=== PATIENT | female | born 2000 | race American Indian/Alaskan Native ===

== ENCOUNTER 2020-09-23 03:01 | Inpatient (IN) | payer BC ==
[2020-09-23] MEDS ORDERED: SODIUM CHLORIDE 0.9% 1000 ML 1,000 ML IV ONE (03:06)
[2020-09-23] MEDS ORDERED: ALBUTEROL 2.5 MG/3 ML NEBU IH ONE ×2 (03:06→04:29)
[2020-09-23] MEDS ORDERED: MAGNESIUM SULFATE 2 GM/50 ML BAG IV ONE (03:06)
[2020-09-23] MEDS ORDERED: methylPREDNISolone Sod Succinate 125 MG/2 ML INJ IV ONE (03:06)
[2020-09-23] MEDS ORDERED: IPRATROPIUM 0.02% NEBU 2.5 ML IH ONE ×2 (03:06→04:29)
--- NOTE | 2020-09-23 03:11 | Emergency Department Report ---
ED Asthma HPI - General Stated Complaint: ASTHMA Time Seen by Provider: 09/23/20 03:05 Source: patient, EMS Mode of arrival: Stretcher Limitations: Other (severe work of breathing) - History of Present Illness Initial Comments: CC: asthma attack HPI: This is a 20 yo female with hx of severe persistent asthma requiring several hospitalizations who presents with asthma attack. She has severe shortness of breath with wheezing. Oxygen saturation 91% on room air according to EMS. Patient denies hx of intubation. Recently evaluated at [facility]. Received 5 mg of Albuterol via EMS in addition to her own albuterol MDI. MD Complaint: "asthma attack", shortness of breath, wheezing -: Gradual, days(s) (1 day) Asthma History: childhood onset, history of prior ED visit Severity: severe Context: none known Associated Symptoms: none Treatments Prior to Arrival: inhaled bronchodilator - Related Data Allergies Allergy/AdvReac Type Severity Reaction Status Date / Time iodine Allergy Unknown Verified 09/23/20 03:24 ED Review of Systems ROS: Stated complaint: ASTHMA Other details as noted in HPI Comment: Unobtainable due to pts medical conditions (limited due to severe work of breathing) ED Past Medical Hx - Past Medical History Previous Medical History?: Yes Hx Asthma: Yes ED Physical Exam - General General appearance: alert, in distress, other (tripod positioning, unable to speak, severe work of breathing) - Head Head exam: Present: atraumatic, normocephalic - Eye Eye exam: Present: normal appearance - ENT ENT exam: Present: mucous membranes moist - Neck Neck exam: Present: normal inspection - Respiratory Respiratory exam: Present: respiratory distress, wheezes, accessory muscle use, prolonged expiratory. Absent: rales, rhonchi - Cardiovascular Cardiovascular Exam: Present: normal rhythm, tachycardia, normal heart sounds. Absent: systolic murmur, diastolic murmur, rubs, gallop - GI/Abdominal GI/Abdominal exam: Present: soft, normal bowel sounds. Absent: distended, tenderness, guarding, rebound - Extremities Exam Extremities exam: Present: normal inspection - Back Exam Back exam: Present: normal inspection - Neurological Exam Neurological exam: Present: alert, oriented X3 - Psychiatric Psychiatric exam: Present: normal affect, anxious - Skin Skin exam: Present: warm, dry, intact, normal color. Absent: rash ED Course Vital Signs 09/23/20 09/23/20 09/23/20 03:02 03:26 04:34 Temperature 97.4 F L Pulse Rate 136 H Pulse Rate [ 134 H 145 H Bilateral Throughout] Respiratory 26 H Rate Respiratory 27 H 24 Rate [Bilateral Throughout] Blood Pressure 127/77 [Left] O2 Sat by Pulse 96 Oximetry - Reevaluation(s) Reevaluation #1: 09/23/20 04:40 Patient has expiratory wheezes, able to speak sentences. Still has obvious work of breathing. ED Medical Decision Making - Lab Data Result diagrams: 09/23/20 03:18 09/23/20 03:18 - Radiology Data Radiology results: report reviewed Chest radiograph no acute findings - Medical Decision Making Status asthmaticus, acute respiratory failure hypoxia, improving with continuous nebulizer therapy but with persistent work of breathing. Patient is now able to speak. However she still has accessory muscle use and prolonged respiratory phase. Work-up notable for leukocytosis attributed to the marginalization, random blood glucose elevation attributed to steroid use. Mild volume contraction. Patient did receive IV fluid therapy in emergency department. Patient admitted to [facility] in fair condition. Critical Care Time: Yes Critical care time in (mins) excluding proc time.: 40 Critical care attestation.: If time is entered above; I have spent that time in minutes in the direct care of this critically ill patient, excluding procedure time. 40 minutes of critical care time excluding procedures were used in the care of the patient. I came immediately to the bedside upon patient's arrival. I obtained history from EMS at the bedside. I discussed treatment plan with the nursing team members and respiratory therapist. I was concerned for imminent respiratory failure. I kept the family members informed. Patient required multiple interventions and reassessments. ED Disposition Clinical Impression: Status asthmaticus, Acute respiratory failure with hypoxia Disposition: OP ADMIT IP TO THIS HOSP Is pt being admited?: Yes Condition: Fair
--- NOTE | 2020-09-23 03:43 | XRay Report ---
CHEST 1 VIEW 09/23/2020 2:37 AM INDICATION / CLINICAL INFORMATION: Asthma. COMPARISON: None available. FINDINGS: SUPPORT DEVICES: None. HEART / MEDIASTINUM: No significant abnormality. LUNGS / PLEURA: Clear lungs. No significant pleural effusion. No pneumothorax. ADDITIONAL FINDINGS: No significant additional findings. IMPRESSION: 1. No acute abnormality of the chest. Signer Name: Tyler Hu MD Signed: 09/23/2020 3:39 AM Workstation Name: [id number]
[2020-09-23 04:09] LABS: Hematocrit 38.2 % (30.3-42.9); Hemoglobin 12.9 gm/dl (10.1-14.3); Mean Corpuscular HGB Conc 34 % (30-34); Mean Corpuscular Volume 96 fl (79-97); Platelet Count 269 K/mm3 (140-440); Red Blood Count 3.99 M/mm3 (3.65-5.03); Red Cell Distribution Width 13.2 % (13.2-15.2)
[2020-09-23 04:22] LABS: BUN/Creatinine Ratio 7; Blood Urea Nitrogen 5 mg/dL (7-17); Calcium 8.7 mg/dL (8.4-10.2); Hemolysis Index 2
[2020-09-23] MEDS ORDERED: ONDANSETRON 4 MG/2 ML INJ IV PRN (04:41)
[2020-09-23] MEDS ORDERED: DEXTROSE 50% IN WATER (25GM) 50 ML SYRINGE IV PRN (04:41)
[2020-09-23] MEDS ORDERED: ACETAMINOPHEN 325 MG TAB PO PRN (04:41)
[2020-09-23] MEDS ORDERED: ALBUTEROL 2.5 MG/3 ML NEBU IH PRN ×2 (04:41→11:41)
--- NOTE | 2020-09-23 05:15 | History and Physical Report ---
History of Present Illness Date of examination: 09/23/20 Date of admission: 09/23/20 04:41 Chief complaint: JAVI History of present illness: 20-year-old -Finnish female with history of severe persistent asthma who presents to [facility] ED with complaints of asthma attack. Patient complains of productive cough with yellow sputum production, chest tightness, shortness of breath and wheezing x1 day. Patient went to outpatient facility ([facility]) for treatment, was given a dose of nebulizer treatments and and was discharged home. After returning home her symptoms did not improve, but rather worsened. EMS was called, and she was transported to our facility for further treatment and evaluation. Of note patient has history severe persistent asthma requiring several hospitalizations. Denies fever, chills, N/V/D, hemoptysis, abdominal pain, loss of smell, loss of taste, myalgias, chest pain, palpitation, or recent sick contacts Past History Past Medical History: other (asthma) Past Surgical History: Other (Cystectomy) Social history: single, full code. denies: smoking, alcohol abuse, prescription drug abuse, IV drug use Family history: diabetes, hypertension Medications and Allergies Allergies Allergy/AdvReac Type Severity Reaction Status Date / Time iodine Allergy Unknown Verified 09/23/20 03:24 Active Meds: Active Medications Acetaminophen (Acetaminophen 325 Mg Tab) 650 mg PO Q4H PRN PRN Reason: Pain MILD(1-3)/Fever >100.5/LOWE Albuterol (Albuterol 2.5 Mg/3 Ml Nebu) 2.5 mg IH Q3HRT PRN PRN Reason: Shortness Of Breath Albuterol/Ipratropium (Ipratropium/Albuterol Sulfate 3 Ml Ampul.Neb) 1 ampul IH Q6HRT KRISTINA Budesonide (Budesonide 0.5 Mg/2 Ml Nebu) 0.5 mg IH Q12HRT KRISTINA Dextrose (Dextrose 50% In Water (25gm) 50 Ml Syringe) 0 ml IV Q30MIN PRN; Protocol PRN Reason: Hypoglycemia Docusate Sodium (Docusate Sodium 100 Mg Cap) 100 mg PO BID KRISTINA Guaifenesin (Guaifenesin Er 600 Mg Tab) 600 mg PO BID KRISTINA Heparin Sodium (Porcine) (Heparin 5,000 Unit/1 Ml Vial) 5,000 unit SUB-Q Q12HR KRISTINA Levofloxacin/Dextrose (Levaquin 500mg/100ml) 500 mg in 100 mls @ 100 mls/hr IV Q24H KRISTINA; Protocol Stop: 09/30/20 04:59 Insulin Human Regular (Insulin Regular, Human 100 Units/1 Ml) 0 units SUB-Q ACHS KRISTINA; Protocol Methylprednisolone Sodium Succinate (Methylprednisolone Sod Succinate 40 Mg/1 Ml Inj) 80 mg IV Q8HR KRISTINA Ondansetron HCl (Ondansetron 4 Mg/2 Ml Inj) 4 mg IV Q8H PRN PRN Reason: Nausea And Vomiting Sodium Chloride (Sodium Chloride 0.9% 10 Ml Flush Syringe) 10 ml IV BID KRISTINA Sodium Chloride (Sodium Chloride 0.9% 10 Ml Flush Syringe) 10 ml IV PRN PRN PRN Reason: LINE FLUSH Review of Systems All systems: negative Exam - Physical Exam Narrative exam: Physical exam General appearance: Present: Moderate distress, alert and oriented x3, young adult -Finnish female, - EENT Eyes: Present: PERRL, EOM intact ENT: hearing intact, normal dentition - Neck Neck: Present: supple, normal ROM - Respiratory Respiratory effort: Labored with use of accessory muscles Respiratory: Coarse wheezing - Cardiovascular Heart rate: 130 (bpm) Rhythm: Sinus tachycardia Heart Sounds: Present: S1 & S2. Absent: rub, click - Extremities Extremities: no ischemia, pulses intact, - Peripheral Assessment Peripheral Pulses: within normal limits - Abdominal General gastrointestinal: soft, non-tender, normal bowel sounds - Integumentary Integumentary: Present: warm, dry - Musculoskeletal Musculoskeletal: Able to move all extremities -Neurological Neurological: CN II-XII intact - Psychiatric Psychiatric: cooperative - Constitutional Vitals: Temp Pulse Resp BP Pulse Ox 97.4 F L 145 H 24 139/77 100 09/23/20 03:02 09/23/20 04:34 09/23/20 04:34 09/23/20 03:30 09/23/20 03:30 Results - Labs CBC & Chem 7: 09/23/20 03:18 09/23/20 03:18 Labs: Laboratory Last Values WBC 14.4 K/mm3 (4.5-11.0) H 09/23/20 03:18 RBC 3.99 M/mm3 (3.65-5.03) 09/23/20 03:18 Hgb 12.9 gm/dl (10.1-14.3) 09/23/20 03:18 Hct 38.2 % (30.3-42.9) 09/23/20 03:18 MCV 96 fl (79-97) 09/23/20 03:18 MCH 32 pg (28-32) 09/23/20 03:18 MCHC 34 % (30-34) 09/23/20 03:18 RDW 13.2 % (13.2-15.2) 09/23/20 03:18 Plt Count 269 K/mm3 (140-440) 09/23/20 03:18 Seg Neutrophils % Product Support Sales Representative 09/23/20 03:18 Sodium 136 mmol/L (137-145) L 09/23/20 03:18 Potassium 3.4 mmol/L (3.6-5.0) L 09/23/20 03:18 Chloride 101.2 mmol/L (98-107) 09/23/20 03:18 Carbon Dioxide 18 mmol/L (22-30) L 09/23/20 03:18 Anion Gap 20 mmol/L 09/23/20 03:18 BUN 5 mg/dL (7-17) L 09/23/20 03:18 Creatinine 0.7 mg/dL (0.6-1.2) 09/23/20 03:18 Estimated GFR > 60 ml/min 09/23/20 03:18 BUN/Creatinine Ratio 7 % 09/23/20 03:18 Glucose 239 mg/dL (65-100) H 09/23/20 03:18 Calcium 8.7 mg/dL (8.4-10.2) 09/23/20 03:18 - Imaging and Cardiology Imaging and Cardiology: CXR: FINDINGS: SUPPORT DEVICES: None. HEART / MEDIASTINUM: No significant abnormality. LUNGS / PLEURA: Clear lungs. No significant pleural effusion. No pneumothorax. ADDITIONAL FINDINGS: No significant additional findings. IMPRESSION: 1. No acute abnormality of the chest. Assessment and Plan Assessment and plan: Acute Exacerbation Asthma with bronchitis -CXR negative -Endorses cough with yellow sputum production -Leukocytosis 14.4 -Continue supportive care -Scheduled Duo Nebs and Pulmicort, albuterol when necessary -IV systemic steroids -Mucinex -Start IV abx -Pulmonary consulted Acute respiratory failure -Monitor saturations -O2 sat 91% on room air -Supplemental oxygen as needed -Wean as tolerated -Supportive care Hyperglycemia -Likely secondary to IV steroids -Monitor BG -A1c pending -SSI as needed Hypokalemia -Mild at 3.4 -Ordered potassium replacement -Continue to monitor replete prn Advance Directives: No VTE prophylaxis?: Chemical, Mechanical Plan of care discussed with patient/family: Yes
[2020-09-23] MEDS ORDERED: POTASSIUM CHLORIDE ER 10 MEQ TAB PO ONE (05:49)
[2020-09-23] MEDS ORDERED: methylPREDNISolone Sod Succinate 40 MG/1 ML INJ IV SCH (06:00)
[2020-09-23 06:41] LABS: Band Neutrophils # (Manual) 0.4 K/mm3; Total Cells Counted 100
[2020-09-23 06:42] LABS: Large Platelets Few; Platelet Estimate Consistent w Auto; RBC Morphology Normal
[2020-09-23] MEDS ORDERED: BUDESONIDE 0.5 MG/2 ML NEBU IH SCH (08:00)
[2020-09-23] MEDS: IPRATROPIUM/ALBUTEROL SULFATE 3 ML AMPUL.NEB IH SCH ×3 (08:17→20:08)
[2020-09-23] MEDS: DOCUSATE SODIUM 100 MG CAP PO SCH ×2 (09:16→21:36)
[2020-09-23] MEDS: INSULIN REGULAR, HUMAN 100 UNITS/1 ML SUB-Q SCH ×4 (09:16→21:37)
[2020-09-23] MEDS: guaiFENesin ER 600 MG TAB PO SCH ×2 (09:16→21:36)
[2020-09-23] MEDS ORDERED: HEPARIN 5,000 UNIT/1 ML VIAL SUB-Q SCH (10:00)
--- NOTE | 2020-09-23 11:10 | Event Note ---
Date: 09/23/20 20-year-old female with a medical history of asthma, COVID-19, pulmonary embolism admitted with chief complaint of shortness of breath. Patient recently moved from [place] to [place] for [facility]. She uses albuterol and Advair at home. Here in the ER, she was noted to have severe asthma exacerbation however was placed on BiPAP and IV steroids. Saw and examined patient at bedside this morning. She looks comfortable but still has diffuse expiratory wheezes. Increased Solu-Medrol to 80 every 6 hours. She is on bronchodilators. Pulmon ology consult requested. Resumed home dose Eliquis. Plan to continue monitor respiratory status. Possibly switch to nasal cannula today. Respiratory therapist to reevaluate. Will document a full progress note tomorrow
[2020-09-23] MEDS ORDERED: ALBUTEROL 2.5 MG/3 ML NEBU IH SCH (11:15)
[2020-09-23] MEDS: methylPREDNISolone Sod Succinate 40 MG/1 ML INJ IV SCH ×2 (12:06→17:06)
[2020-09-23] MEDS: APIXABAN 5 MG TAB PO SCH ×2 (12:09→21:36)
[2020-09-23 14:38] LABS: Hematocrit 34.3 % (30.3-42.9); Mean Corpuscular HGB Conc 35 % (30-34); Mean Corpuscular Volume 93 fl (79-97); Platelet Count 263 K/mm3 (140-440); Red Blood Count 3.68 M/mm3 (3.65-5.03); Red Cell Distribution Width 13.1 % (13.2-15.2)
[2020-09-23 14:55] LABS: INR 1.07 (0.87-1.13)
[2020-09-23] MEDS: BUDESONIDE 0.5 MG/2 ML NEBU IH SCH (20:08)
[2020-09-23] MEDS: ARFORMOTEROL 15 MCG/2 ML NEBU IH SCH (20:08)
[2020-09-24] MEDS: IPRATROPIUM/ALBUTEROL SULFATE 3 ML AMPUL.NEB IH SCH ×5 (02:13→20:19)
[2020-09-24] MEDS: methylPREDNISolone Sod Succinate 40 MG/1 ML INJ IV SCH ×4 (05:05→21:25)
[2020-09-24 06:27] LABS: Blood Urea Nitrogen 11 mg/dL (7-17); Calcium 9.1 mg/dL (8.4-10.2); Hemolysis Index 1
[2020-09-24 06:32] LABS: Basophils % (Auto) 0.1 % (0.0-1.8); Hematocrit 35.2 % (30.3-42.9); Hemoglobin 12.2 gm/dl (10.1-14.3); Lymphocytes # (Auto) 0.7 K/mm3 (1.2-5.4); Mean Corpuscular HGB Conc 35 % (30-34); Mean Corpuscular Volume 94 fl (79-97); Monocytes % (Auto) 11.3 % (0.0-7.3); Platelet Count 278 K/mm3 (140-440); Red Blood Count 3.74 M/mm3 (3.65-5.03); Red Cell Distribution Width 13.2 % (13.2-15.2)
[2020-09-24 06:45] LABS: BUN/Creatinine Ratio 18
[2020-09-24] MEDS: INSULIN REGULAR, HUMAN 100 UNITS/1 ML SUB-Q SCH ×4 (07:09→21:25)
[2020-09-24] MEDS: ARFORMOTEROL 15 MCG/2 ML NEBU IH SCH ×2 (08:24→20:17)
[2020-09-24] MEDS: BUDESONIDE 0.5 MG/2 ML NEBU IH SCH ×2 (08:25→20:19)
[2020-09-24] MEDS: guaiFENesin ER 600 MG TAB PO SCH ×2 (09:02→21:24)
[2020-09-24] MEDS: DOCUSATE SODIUM 100 MG CAP PO SCH ×2 (09:02→21:24)
[2020-09-24] MEDS: APIXABAN 5 MG TAB PO SCH ×2 (09:02→21:24)
--- NOTE | 2020-09-24 10:22 | Progress Note ---
Assessment and Plan Assessment and plan: #Acute hypoxic respiratory failure Secondary to severe asthma exacerbation Continue oxygen supplementation as needed #Acute asthma exacerbation Solu-Medrol 80 every 6 Bronchodilators Guaifenesin Pulmonology evaluation Antibiotics #History of pulmonary embolism Continue Eliquis DVT prophylaxis-patient is on Eliquis Full code History Interval history: 09/24. Patient is breathing better. Remains on high-dose steroids. Transitioned from BiPAP to oxygen today. Remains on bronchodilators. Pulmonology to see Hospitalist Physical - Physical exam Narrative exam: VITAL SIGNS: Reviewed. GENERAL: Awake HEAD: No signs of head trauma. EYES: Pupils are equal. Extraocular motions intact. MOUTH: Oropharynx is normal. NECK: No adenopathy, no JVD. CHEST: Diffuse expiratory wheezes/rhonchi CARDIAC: normal S1 and S2, without murmurs, gallops, or rubs. ABDOMEN: Soft, non tender and non distended. No rebound or guarding, and no masses palpated. Bowel Sounds normal. MUSCULOSKELETAL: No edema NEUROLOGIC EXAM: Alert and oriented x3. No focal neurologic deficits SKIN: No obvious lesions - Constitutional Vitals: Temp Pulse Resp BP Pulse Ox 98.0 F 90 22 109/65 97 09/24/20 08:34 09/24/20 08:34 09/24/20 08:34 09/24/20 08:34 09/24/20 08:39 Results - Labs CBC & Chem 7: 09/24/20 04:54 09/24/20 04:54 Labs: Laboratory Last Values WBC 17.7 K/mm3 (4.5-11.0) H 09/24/20 04:54 RBC 3.74 M/mm3 (3.65-5.03) 09/24/20 04:54 Hgb 12.2 gm/dl (10.1-14.3) 09/24/20 04:54 Hct 35.2 % (30.3-42.9) 09/24/20 04:54 MCV 94 fl (79-97) 09/24/20 04:54 MCH 33 pg (28-32) H 09/24/20 04:54 MCHC 35 % (30-34) H 09/24/20 04:54 RDW 13.2 % (13.2-15.2) 09/24/20 04:54 Plt Count 278 K/mm3 (140-440) 09/24/20 04:54 Lymph % (Auto) 4.0 % (13.4-35.0) L 09/24/20 04:54 Deuel % (Auto) 11.3 % (0.0-7.3) H 09/24/20 04:54 Eos % (Auto) 0.0 % (0.0-4.3) 09/24/20 04:54 Baso % (Auto) 0.1 % (0.0-1.8) 09/24/20 04:54 Lymph # (Auto) 0.7 K/mm3 (1.2-5.4) L 09/24/20 04:54 Deuel # (Auto) 2.0 K/mm3 (0.0-0.8) H 09/24/20 04:54 Eos # (Auto) 0.0 K/mm3 (0.0-0.4) 09/24/20 04:54 Baso # (Auto) 0.0 K/mm3 (0.0-0.1) 09/24/20 04:54 Add Manual Diff Complete 09/23/20 03:18 Total Counted 100 09/23/20 03:18 Seg Neutrophils % 84.6 % (40.0-70.0) H 09/24/20 04:54 Seg Neuts % (Manual) 93.0 % (40.0-70.0) H 09/23/20 03:18 Band Neutrophils % 3.0 % 09/23/20 03:18 Lymphocytes % (Manual) 2.0 % (13.4-35.0) L 09/23/20 03:18 Monocytes % (Manual) 2.0 % (0.0-7.3) 09/23/20 03:18 Nucleated RBC % Not Reportable 09/23/20 03:18 Seg Neutrophils # 14.9 K/mm3 (1.8-7.7) H 09/24/20 04:54 Seg Neutrophils # Man 13.4 K/mm3 (1.8-7.7) H 09/23/20 03:18 Band Neutrophils # 0.4 K/mm3 09/23/20 03:18 Lymphocytes # (Manual) 0.3 K/mm3 (1.2-5.4) L 09/23/20 03:18 Abs React Lymphs (Man) 0.0 K/mm3 09/23/20 03:18 Monocytes # (Manual) 0.3 K/mm3 (0.0-0.8) 09/23/20 03:18 Eosinophils # (Manual) 0.0 K/mm3 (0.0-0.4) 09/23/20 03:18 Basophils # (Manual) 0.0 K/mm3 (0.0-0.1) 09/23/20 03:18 Metamyelocytes # 0.0 K/mm3 09/23/20 03:18 Myelocytes # 0.0 K/mm3 09/23/20 03:18 Promyelocytes # 0.0 K/mm3 09/23/20 03:18 Blast Cells # 0.0 K/mm3 09/23/20 03:18 WBC Morphology Not Reportable 09/23/20 03:18 Hypersegmented Neuts Not Reportable 09/23/20 03:18 Hyposegmented Neuts Not Reportable 09/23/20 03:18 Hypogranular Neuts Not Reportable 09/23/20 03:18 Smudge Cells Not Reportable 09/23/20 03:18 Toxic Granulation Not Reportable 09/23/20 03:18 Toxic Vacuolation Not Reportable 09/23/20 03:18 Dohle Bodies Not Reportable 09/23/20 03:18 Pelger-Huet Anomaly Not Reportable 09/23/20 03:18 Sai Rods Not Reportable 09/23/20 03:18 Platelet Estimate Consistent w auto 09/23/20 03:18 Clumped Platelets Not Reportable 09/23/20 03:18 Plt Clumps, EDTA Not Reportable 09/23/20 03:18 Large Platelets Few 09/23/20 03:18 Giant Platelets Not Reportable 09/23/20 03:18 Platelet Satelliting Not Reportable 09/23/20 03:18 Plt Morphology Comment Not Reportable 09/23/20 03:18 RBC Morphology Normal 09/23/20 03:18 Dimorphic RBCs Not Reportable 09/23/20 03:18 Polychromasia Not Reportable 09/23/20 03:18 Hypochromasia Not Reportable 09/23/20 03:18 Poikilocytosis Not Reportable 09/23/20 03:18 Anisocytosis Not Reportable 09/23/20 03:18 Microcytosis Not Reportable 09/23/20 03:18 Macrocytosis Not Reportable 09/23/20 03:18 Spherocytes Not Reportable 09/23/20 03:18 Pappenheimer Bodies Not Reportable 09/23/20 03:18 Sickle Cells Not Reportable 09/23/20 03:18 Target Cells Not Reportable 09/23/20 03:18 Tear Drop Cells Not Reportable 09/23/20 03:18 Ovalocytes Not Reportable 09/23/20 03:18 Helmet Cells Not Reportable 09/23/20 03:18 Kauffman-Florence-Graham Bodies Not Reportable 09/23/20 03:18 [place] Rings Not Reportable 09/23/20 03:18 Vanessa Cells Not Reportable 09/23/20 03:18 Bite Cells Not Reportable 09/23/20 03:18 Crenated Cell Not Reportable 09/23/20 03:18 Elliptocytes Not Reportable 09/23/20 03:18 Acanthocytes (Spur) Not Reportable 09/23/20 03:18 Rouleaux Not Reportable 09/23/20 03:18 Hemoglobin C Crystals Not Reportable 09/23/20 03:18 Schistocytes Not Reportable 09/23/20 03:18 Malaria parasites Not Reportable 09/23/20 03:18 Deng Bodies Not Reportable 09/23/20 03:18 Hem Pathologist Commnt No 09/23/20 03:18 PT 13.8 Sec. (12.2-14.9) 09/23/20 13:40 INR 1.07 (0.87-1.13) 09/23/20 13:40 APTT 27.0 Sec. (24.2-36.6) 09/23/20 13:40 Sodium 139 mmol/L (137-145) 09/24/20 04:54 Potassium 4.4 mmol/L (3.6-5.0) D 09/24/20 04:54 Chloride 106.8 mmol/L (98-107) 09/24/20 04:54 Carbon Dioxide 22 mmol/L (22-30) 09/24/20 04:54 Anion Gap 15 mmol/L 09/24/20 04:54 BUN 11 mg/dL (7-17) 09/24/20 04:54 Creatinine 0.6 mg/dL (0.6-1.2) 09/24/20 04:54 Estimated GFR > 60 ml/min 09/24/20 04:54 BUN/Creatinine Ratio 18 % 09/24/20 04:54 Glucose 109 mg/dL (65-100) H 09/24/20 04:54 POC Glucose 124 mg/dL (70-105) H 09/23/20 21:03 Hemoglobin A1c 4.5 % (4-6) 09/23/20 05:53 Calcium 9.1 mg/dL (8.4-10.2) 09/24/20 04:54 Microbiology: Microbiology 09/23/20 05:53 Peripheral/Venous Blood Culture - Preliminary NO GROWTH AFTER 24 HOURS 09/23/20 05:59 Peripheral/Venous Blood Culture - Preliminary NO GROWTH AFTER 24 HOURS Molina/IV: Voiding Method Toilet Active Medications - Current Medications Current Medications: Generic Name Dose Route Start Last Admin Trade Name Freq PRN Reason Stop Dose Admin Acetaminophen 650 mg 09/23/20 04:41 Acetaminophen 325 Mg Tab PO Q4H PRN Pain MILD(1-3)/Fever >100.5/LOWE Albuterol 2.5 mg 09/23/20 11:41 09/23/20 17:38 Albuterol 2.5 Mg/3 Ml Nebu IH 2.5 mg Q4HRT PRN Administration Shortness of breath. Albuterol/Ipratropium 1 ampul 09/23/20 14:00 09/24/20 08:24 Ipratropium/Albuterol Sulfate 3 Ml Ampul.Neb IH 1 ampul Q6HRT KRISTINA Administration Apixaban 5 mg 09/23/20 10:00 09/24/20 09:02 Apixaban 5 Mg Tab PO 5 mg Q12HR KRISTINA Administration Protocol Arformoterol Tartrate 15 mcg 09/23/20 20:00 09/24/20 08:24 Arformoterol 15 Mcg/2 Ml Nebu IH 15 mcg Q12HRT KRISTINA Administration Budesonide 0.5 mg 09/23/20 20:00 09/24/20 08:25 Budesonide 0.5 Mg/2 Ml Nebu IH 0.5 mg Q12HRT KRISTINA Administration Dextrose 0 ml 09/23/20 04:41 Dextrose 50% In Water (25gm) 50 Ml Syringe IV Q30MIN PRN Hypoglycemia Protocol Docusate Sodium 100 mg 09/23/20 10:00 09/24/20 09:02 Docusate Sodium 100 Mg Cap PO 100 mg BID KRISTINA Administration Guaifenesin 600 mg 09/23/20 10:00 09/24/20 09:02 Guaifenesin Er 600 Mg Tab PO 600 mg BID KRISTINA Administration Levofloxacin/Dextrose 500 mg in 100 mls @ 100 mls/hr 09/23/20 05:00 09/24/20 05:05 Levaquin 500mg/100ml IV 09/27/20 05:59 100 mls/hr Q24H KRISTINA Administration Protocol Insulin Human Regular 0 units 09/23/20 07:30 09/24/20 07:09 Insulin Regular, Human 100 Units/1 Ml SUB-Q Not Given ACHS KRISTINA Protocol Methylprednisolone Sodium Succinate 80 mg 09/23/20 12:00 09/24/20 05:05 Methylprednisolone Sod Succinate 40 Mg/1 Ml Inj IV 80 mg Q6HR KRISTINA Administration Ondansetron HCl 4 mg 09/23/20 04:41 Ondansetron 4 Mg/2 Ml Inj IV Q8H PRN Nausea And Vomiting Sodium Chloride 10 ml 09/23/20 10:00 09/24/20 09:02 Sodium Chloride 0.9% 10 Ml Flush Syringe IV 10 ml BID KRISTINA Administration Sodium Chloride 10 ml 09/23/20 04:41 Sodium Chloride 0.9% 10 Ml Flush Syringe IV PRN PRN LINE FLUSH
--- NOTE | 2020-09-24 11:02 | Consultation ---
History of Present Illness Consult date: 09/23/20 Reason for consult: dyspnea, asthma, pulmonary embolism History of present illness: 20-year-old -[place]ian female with history of severe persistent asthma who presents to [facility] ED with complaints of asthma attack. Patient complains of prod uctive cough with yellow sputum production, chest tightness, shortness of breath and wheezing x1 day. Patient went to outpatient facility ([facility]) for treatment, was given a dose of nebulizer treatments and and was discharged home. After returning home her symptoms did not improve, but rather worsened. EMS was called, and she was transported to our facility for further treatment and evaluation. Of note patient has history severe persistent asthma requiring several hospitalization. Patient told me she has a history of pulmonary emboli. Patient is on eliquis. Patient alert and awake, and presently resting on BiPAP 12/6, rate 18, FiO2 35%. O2 saturation is 100%. Patient afebrile with leukocytosis. Chest x-ray done on 09/23/20 reported no acute abnormality of the chest. Medications include albuterol and atrovent aerosol treatments, eliquis, methylprednisone, levaquin, brovana, pulmicort. Past History Past Medical History: other (asthma) Past Surgical History: Other (Cystectomy) Social history: single, full code. denies: smoking, alcohol abuse, prescription drug abuse, IV drug use Family history: diabetes, hypertension Medications and Allergies Allergies Allergy/AdvReac Type Severity Reaction Status Date / Time iodine Allergy Unknown Verified 09/23/20 03:24 Home Medications Medication Instructions Recorded Confirmed Last Taken Type No Known Home Medications [No 09/23/20 09/23/20 Unknown History Reported Home Medications] Active Meds: Active Medications Acetaminophen (Acetaminophen 325 Mg Tab) 650 mg PO Q4H PRN PRN Reason: Pain MILD(1-3)/Fever >100.5/LOWE Albuterol (Albuterol 2.5 Mg/3 Ml Nebu) 2.5 mg IH Q4HRT PRN PRN Reason: Shortness of breath. Last Admin: 09/23/20 17:38 Dose: 2.5 mg Documented by: Albuterol/Ipratropium (Ipratropium/Albuterol Sulfate 3 Ml Ampul.Neb) 1 ampul IH Q6HRT KRISTINA Last Admin: 09/23/20 13:28 Dose: 1 ampul Documented by: Apixaban (Apixaban 5 Mg Tab) 5 mg PO Q12HR [facility]; Protocol Last Admin: 09/23/20 12:09 Dose: 5 mg Documented by: Arformoterol Tartrate (Arformoterol 15 Mcg/2 Ml Nebu) 15 mcg IH Q12HRT [facility] Budesonide (Budesonide 0.5 Mg/2 Ml Nebu) 0.5 mg IH Q12HRT [facility] Dextrose (Dextrose 50% In Water (25gm) 50 Ml Syringe) 0 ml IV Q30MIN PRN; Protocol PRN Reason: Hypoglycemia Docusate Sodium (Docusate Sodium 100 Mg Cap) 100 mg PO BID [facility] Last Admin: 09/23/20 09:16 Dose: 100 mg Documented by: Guaifenesin (Guaifenesin Er 600 Mg Tab) 600 mg PO BID [facility] Last Admin: 09/23/20 09:16 Dose: 600 mg Documented by: Levofloxacin/Dextrose (Levaquin 500mg/100ml) 500 mg in 100 mls @ 100 mls/hr IV Q24H [facility]; Protocol Stop: 09/27/20 05:59 Last Admin: 09/23/20 05:51 Dose: 100 mls/hr Documented by: Insulin Human Regular (Insulin Regular, Human 100 Units/1 Ml) 0 units SUB-Q ACHS [facility]; Protocol Last Admin: 09/23/20 17:05 Dose: Not Given Documented by: Methylprednisolone Sodium Succinate (Methylprednisolone Sod Succinate 40 Mg/1 Ml Inj) 80 mg IV Q6HR [facility] Last Admin: 09/23/20 17:06 Dose: 80 mg Documented by: Ondansetron HCl (Ondansetron 4 Mg/2 Ml Inj) 4 mg IV Q8H PRN PRN Reason: Nausea And Vomiting Sodium Chloride (Sodium Chloride 0.9% 10 Ml Flush Syringe) 10 ml IV BID [facility] Last Admin: 09/23/20 09:16 Dose: 10 ml Documented by: Sodium Chloride (Sodium Chloride 0.9% 10 Ml Flush Syringe) 10 ml IV PRN PRN PRN Reason: LINE FLUSH Review of Systems All systems: negative Physical Examination Vital signs: Vital Signs Temp Pulse Resp BP Pulse Ox 97.4 F L 136 H 26 H 127/77 96 09/23/20 03:02 09/23/20 03:02 09/23/20 03:02 09/23/20 03:02 09/23/20 03:02 General appearance: no acute distress, alert, other (resting on BiPAP) Eyes: non-icteric ENT: oropharynx moist Neck: supple Effort: normal Ascultation: Bilateral: wheezes Cardiovascular: regular rate and rhythm Gastrointestinal: normoactive bowel sounds, non-distended Integumentary: normal Extremities: no cyanosis Musculoskeletal: no deformities Gait: normal gait, normal posture normal mental status, non-focal exam, pupils equal and round mood appropriate Results - Laboratory Findings CBC and BMP: 09/24/20 04:54 09/24/20 04:54 PT/INR, D-dimer PT 13.8 Sec. (12.2-14.9) 09/23/20 13:40 INR 1.07 (0.87-1.13) 09/23/20 13:40 Abnormal lab findings: Abnormal Labs 09/23/20 09/23/20 09/23/20 03:18 03:18 08:34 WBC 14.4 H MCH MCHC RDW Seg Neuts % (Manual) 93.0 H Lymphocytes % (Manual) 2.0 L Seg Neutrophils # Man 13.4 H Lymphocytes # (Manual) 0.3 L Sodium 136 L Potassium 3.4 L Carbon Dioxide 18 L BUN 5 L Creatinine Glucose 239 H POC Glucose 208 H 09/23/20 09/23/20 09/23/20 11:29 13:40 13:40 WBC 14.3 H MCH 33 H MCHC 35 H RDW 13.1 L Seg Neuts % (Manual) Lymphocytes % (Manual) Seg Neutrophils # Man Lymphocytes # (Manual) Sodium Potassium Carbon Dioxide BUN Creatinine 0.5 L Glucose POC Glucose 181 H - Diagnostic Findings Chest x-ray: report reviewed, image reviewed Additional studies: CHEST 1 VIEW 09/23/2020 2:37 AM INDICATION / CLINICAL INFORMATION: Asthma. COMPARISON: None available. FINDINGS: SUPPORT DEVICES: None. HEART / MEDIASTINUM: No significant abnormality. LUNGS / PLEURA: Clear lungs. No significant pleural effusion. No pneumothorax. ADDITIONAL FINDINGS: No significant additional findings. IMPRESSION: 1. No acute abnormality of the chest. Assessment and Plan 20-year-old -[place] female with history of severe persistent asthma who presents to [facility] ED with complaints of asthma attack. Patient complains of prod uctive cough with yellow sputum production, chest tightness, shortness of breath and wheezing x1 day. Patient went to outpatient facility ([facility]) for treatment, was given a dose of nebulizer treatments and and was discharged home. After returning home her symptoms did not improve, but rather worsened. EMS was called, and she was transported to our facility for further treatment and evaluation. Of note patient has history severe persistent asthma requiring several hospitalization. Patient told me she has a history of pulmonary emboli. Patient is on eliquis. Patient alert and awake, and presently resting on BiPAP 12/6, rate 18, FiO2 35%. O2 saturation is 100%. Patient afebrile with leukocytosis. Chest x-ray done on 09/23/20 reported no acute abnormality of the chest. Medications include albuterol and atrovent aerosol treatments, eliquis, methylprednisone, levaquin, brovana, pulmicort. - Patient Problems (1) Acute respiratory failure with hypoxia Current Visit: Yes Status: Acute Plan to address problem: Patient presently resting on BiPAP 12/6, rate 18, FiO2 35%. O2 saturation is 100%. Continue albuterol and atrovent aerosol treatments, brovana, pulmicort. Continue eliquis. (2) Status asthmaticus Current Visit: Yes Status: Acute Plan to address problem: Patient presently resting on BiPAP 12/6, rate 18, FiO2 35%. O2 saturation is 100%. Continue albuterol and atrovent aerosol treatments, brovana, pulmicort. Continue eliquis. Continue levaquin. (3) History of pulmonary embolism Current Visit: Yes Status: Acute Plan to address problem: Patient is on eliquis.
[2020-09-24] MEDS ORDERED: MONTELUKAST 10 MG TAB PO SCH (22:00)
[2020-09-25] MEDS: IPRATROPIUM/ALBUTEROL SULFATE 3 ML AMPUL.NEB IH SCH ×3 (01:42→16:53)
[2020-09-25] MEDS: methylPREDNISolone Sod Succinate 40 MG/1 ML INJ IV SCH ×2 (02:38→05:27)
[2020-09-25 06:10] LABS: Hematocrit 36.9 % (30.3-42.9); Hemoglobin 12.6 gm/dl (10.1-14.3); Mean Corpuscular HGB Conc 34 % (30-34); Mean Corpuscular Volume 93 fl (79-97); Platelet Count 344 K/mm3 (140-440); Red Blood Count 3.98 M/mm3 (3.65-5.03); Red Cell Distribution Width 13.2 % (13.2-15.2)
[2020-09-25] MEDS: BUDESONIDE 0.5 MG/2 ML NEBU IH SCH (09:44)
[2020-09-25] MEDS: ARFORMOTEROL 15 MCG/2 ML NEBU IH SCH (09:45)
[2020-09-25] MEDS: INSULIN REGULAR, HUMAN 100 UNITS/1 ML SUB-Q SCH (10:21)
[2020-09-25] MEDS: APIXABAN 5 MG TAB PO SCH (10:24)
[2020-09-25] MEDS: DOCUSATE SODIUM 100 MG CAP PO SCH (10:24)
[2020-09-25] MEDS: guaiFENesin ER 600 MG TAB PO SCH (10:24)
--- NOTE | 2020-09-25 11:25 | Progress Note ---
Assessment and Plan Assessment and plan: #Acute hypoxic respiratory failure Secondary to severe asthma exacerbation Now off BiPAP Continue oxygen supplementation as needed #Acute asthma exacerbation Solu-Medrol taper Bronchodilators Guaifenesin Pulmonology evaluation Antibiotics #History of pulmonary embolism Continue Eliquis DVT prophylaxis-patient is on Eliquis Full code History Interval history: 09/24. Patient is breathing better. Remains on high-dose steroids. Transitioned from BiPAP to oxygen today. Remains on bronchodilators. Pulmonology to see 09/25. Off BiPAP. Plan to get a walk test today. If remains stable, patient will be discharged on prednisone taper. She will need to follow-up with die assembler in 1 to 2 weeks. Hospitalist Physical - Physical exam Narrative exam: VITAL SIGNS: Reviewed. GENERAL: Awake HEAD: No signs of head trauma. EYES: Pupils are equal. Extraocular motions intact. MOUTH: Oropharynx is normal. NECK: No adenopathy, no JVD. CHEST: Diffuse expiratory wheezes/rhonchi CARDIAC: normal S1 and S2, without murmurs, gallops, or rubs. ABDOMEN: Soft, non tender and non distended. No rebound or guarding, and no masses palpated. Bowel Sounds normal. MUSCULOSKELETAL: No edema NEUROLOGIC EXAM: Alert and oriented x3. No focal neurologic deficits SKIN: No obvious lesions - Constitutional Vitals: Temp Pulse Resp BP Pulse Ox 98.2 F 68 18 123/75 94 09/25/20 07:38 09/25/20 07:38 09/25/20 07:38 09/25/20 07:38 09/25/20 09:45 Results - Labs CBC & Chem 7: 09/25/20 04:55 09/24/20 04:54 Labs: Laboratory Last Values WBC 16.1 K/mm3 (4.5-11.0) H 09/25/20 04:55 RBC 3.98 M/mm3 (3.65-5.03) 09/25/20 04:55 Hgb 12.6 gm/dl (10.1-14.3) 09/25/20 04:55 Hct 36.9 % (30.3-42.9) 09/25/20 04:55 MCV 93 fl (79-97) 09/25/20 04:55 MCH 32 pg (28-32) 09/25/20 04:55 MCHC 34 % (30-34) 09/25/20 04:55 RDW 13.2 % (13.2-15.2) 09/25/20 04:55 Plt Count 344 K/mm3 (140-440) 09/25/20 04:55 Lymph % (Auto) 4.0 % (13.4-35.0) L 09/24/20 04:54 [place] % (Auto) 11.3 % (0.0-7.3) H 09/24/20 04:54 Eos % (Auto) 0.0 % (0.0-4.3) 09/24/20 04:54 Baso % (Auto) 0.1 % (0.0-1.8) 09/24/20 04:54 Lymph # (Auto) 0.7 K/mm3 (1.2-5.4) L 09/24/20 04:54 [place]ern # (Auto) 2.0 K/mm3 (0.0-0.8) H 09/24/20 04:54 Eos # (Auto) 0.0 K/mm3 (0.0-0.4) 09/24/20 04:54 Baso # (Auto) 0.0 K/mm3 (0.0-0.1) 09/24/20 04:54 Add Manual Diff Complete 09/23/20 03:18 Total Counted 100 09/23/20 03:18 Seg Neutrophils % 84.6 % (40.0-70.0) H 09/24/20 04:54 Seg Neuts % (Manual) 93.0 % (40.0-70.0) H 09/23/20 03:18 Band Neutrophils % 3.0 % 09/23/20 03:18 Lymphocytes % (Manual) 2.0 % (13.4-35.0) L 09/23/20 03:18 Monocytes % (Manual) 2.0 % (0.0-7.3) 09/23/20 03:18 Nucleated RBC % Not Reportable 09/23/20 03:18 Seg Neutrophils # 14.9 K/mm3 (1.8-7.7) H 09/24/20 04:54 Seg Neutrophils # Man 13.4 K/mm3 (1.8-7.7) H 09/23/20 03:18 Band Neutrophils # 0.4 K/mm3 09/23/20 03:18 Lymphocytes # (Manual) 0.3 K/mm3 (1.2-5.4) L 09/23/20 03:18 Abs React Lymphs (Man) 0.0 K/mm3 09/23/20 03:18 Monocytes # (Manual) 0.3 K/mm3 (0.0-0.8) 09/23/20 03:18 Eosinophils # (Manual) 0.0 K/mm3 (0.0-0.4) 09/23/20 03:18 Basophils # (Manual) 0.0 K/mm3 (0.0-0.1) 09/23/20 03:18 Metamyelocytes # 0.0 K/mm3 09/23/20 03:18 Myelocytes # 0.0 K/mm3 09/23/20 03:18 Promyelocytes # 0.0 K/mm3 09/23/20 03:18 Blast Cells # 0.0 K/mm3 09/23/20 03:18 WBC Morphology Not Reportable 09/23/20 03:18 Hypersegmented Neuts Not Reportable 09/23/20 03:18 Hyposegmented Neuts Not Reportable 09/23/20 03:18 Hypogranular Neuts Not Reportable 09/23/20 03:18 Smudge Cells Not Reportable 09/23/20 03:18 Toxic Granulation Not Reportable 09/23/20 03:18 Toxic Vacuolation Not Reportable 09/23/20 03:18 Dohle Bodies Not Reportable 09/23/20 03:18 Pelger-Huet Anomaly Not Reportable 09/23/20 03:18 Sai Rods Not Reportable 09/23/20 03:18 Platelet Estimate Consistent w auto 09/23/20 03:18 Clumped Platelets Not Reportable 09/23/20 03:18 Plt Clumps, EDTA Not Reportable 09/23/20 03:18 Large Platelets Few 09/23/20 03:18 Giant Platelets Not Reportable 09/23/20 03:18 Platelet Satelliting Not Reportable 09/23/20 03:18 Plt Morphology Comment Not Reportable 09/23/20 03:18 RBC Morphology Normal 09/23/20 03:18 Dimorphic RBCs Not Reportable 09/23/20 03:18 Polychromasia Not Reportable 09/23/20 03:18 Hypochromasia Not Reportable 09/23/20 03:18 Poikilocytosis Not Reportable 09/23/20 03:18 Anisocytosis Not Reportable 09/23/20 03:18 Microcytosis Not Reportable 09/23/20 03:18 Macrocytosis Not Reportable 09/23/20 03:18 Spherocytes Not Reportable 09/23/20 03:18 Pappenheimer Bodies Not Reportable 09/23/20 03:18 Sickle Cells Not Reportable 09/23/20 03:18 Target Cells Not Reportable 09/23/20 03:18 Tear Drop Cells Not Reportable 09/23/20 03:18 Ovalocytes Not Reportable 09/23/20 03:18 Helmet Cells Not Reportable 09/23/20 03:18 [place] Bodies Not Reportable 09/23/20 03:18 [place] Rings Not Reportable 09/23/20 03:18 Martha Cells Not Reportable 09/23/20 03:18 Bite Cells Not Reportable 09/23/20 03:18 Crenated Cell Not Reportable 09/23/20 03:18 Elliptocytes Not Reportable 09/23/20 03:18 Acanthocytes (Spur) Not Reportable 09/23/20 03:18 Rouleaux Not Reportable 09/23/20 03:18 Hemoglobin C Crystals Not Reportable 09/23/20 03:18 Schistocytes Not Reportable 09/23/20 03:18 Malaria parasites Not Reportable 09/23/20 03:18 Deng Bodies Not Reportable 09/23/20 03:18 Hem Pathologist Commnt No 09/23/20 03:18 PT 13.8 Sec. (12.2-14.9) 09/23/20 13:40 INR 1.07 (0.87-1.13) 09/23/20 13:40 APTT 27.0 Sec. (24.2-36.6) 09/23/20 13:40 Sodium 139 mmol/L (137-145) 09/24/20 04:54 Potassium 4.4 mmol/L (3.6-5.0) D 09/24/20 04:54 Chloride 106.8 mmol/L (98-107) 09/24/20 04:54 Carbon Dioxide 22 mmol/L (22-30) 09/24/20 04:54 Anion Gap 15 mmol/L 09/24/20 04:54 BUN 11 mg/dL (7-17) 09/24/20 04:54 Creatinine 0.6 mg/dL (0.6-1.2) 09/24/20 04:54 Estimated GFR > 60 ml/min 09/24/20 04:54 BUN/Creatinine Ratio 18 % 09/24/20 04:54 Glucose 109 mg/dL (65-100) H 09/24/20 04:54 POC Glucose 130 mg/dL (70-105) H 09/25/20 07:46 Hemoglobin A1c 4.5 % (4-6) 09/23/20 05:53 Calcium 9.1 mg/dL (8.4-10.2) 09/24/20 04:54 Microbiology: Microbiology 09/23/20 05:53 Peripheral/Venous Blood Culture - Preliminary NO GROWTH AFTER 48 HOURS 09/23/20 05:59 Peripheral/Venous Blood Culture - Preliminary NO GROWTH AFTER 48 HOURS Molina/IV: Voiding Method Toilet Active Medications - Current Medications Current Medications: Generic Name Dose Route Start Last Admin Trade Name Freq PRN Reason Stop Dose Admin Acetaminophen 650 mg 09/23/20 04:41 Acetaminophen 325 Mg Tab PO Q4H PRN Pain MILD(1-3)/Fever >100.5/LOWE Albuterol 2.5 mg 09/23/20 11:41 09/23/20 17:38 Albuterol 2.5 Mg/3 Ml Nebu IH 2.5 mg Q4HRT PRN Administration Shortness of breath. Albuterol/Ipratropium 1 ampul 09/23/20 14:00 09/25/20 09:45 Ipratropium/Albuterol Sulfate 3 Ml Ampul.Neb IH Not Given Q6HRT KRISTINA Apixaban 5 mg 09/23/20 10:00 09/25/20 10:24 Apixaban 5 Mg Tab PO 5 mg Q12HR KRISTINA Administration Protocol Arformoterol Tartrate 15 mcg 09/23/20 20:00 09/25/20 09:45 Arformoterol 15 Mcg/2 Ml Nebu IH 15 mcg Q12HRT KRISTINA Administration Budesonide 0.5 mg 09/23/20 20:00 09/25/20 09:44 Budesonide 0.5 Mg/2 Ml Nebu IH 0.5 mg Q12HRT KRISTINA Administration Dextrose 0 ml 09/23/20 04:41 Dextrose 50% In Water (25gm) 50 Ml Syringe IV Q30MIN PRN Hypoglycemia Protocol Docusate Sodium 100 mg 09/23/20 10:00 09/25/20 10:24 Docusate Sodium 100 Mg Cap PO Not Given BID KRISTINA Guaifenesin 600 mg 09/23/20 10:00 09/25/20 10:24 Guaifenesin Er 600 Mg Tab PO 600 mg BID KRISTINA Administration Levofloxacin/Dextrose 500 mg in 100 mls @ 100 mls/hr 09/23/20 05:00 09/25/20 05:27 Levaquin 500mg/100ml IV 09/27/20 05:59 100 mls/hr Q24H KRISTINA Administration Protocol Insulin Human Regular 0 units 09/23/20 07:30 09/25/20 10:21 Insulin Regular, Human 100 Units/1 Ml SUB-Q Not Given ACHS KRISTINA Protocol Methylprednisolone Sodium Succinate 80 mg 09/23/20 12:00 09/25/20 05:27 Methylprednisolone Sod Succinate 40 Mg/1 Ml Inj IV 80 mg Q6HR KRISTINA Administration Montelukast Sodium 10 mg 09/24/20 22:00 09/24/20 21:24 Montelukast 10 Mg Tab PO 10 mg QHS KRISTINA Administration Ondansetron HCl 4 mg 09/23/20 04:41 Ondansetron 4 Mg/2 Ml Inj IV Q8H PRN Nausea And Vomiting Sodium Chloride 10 ml 09/23/20 10:00 09/25/20 10:24 Sodium Chloride 0.9% 10 Ml Flush Syringe IV 10 ml BID KRISTINA Administration Sodium Chloride 10 ml 09/23/20 04:41 Sodium Chloride 0.9% 10 Ml Flush Syringe IV PRN PRN LINE FLUSH
--- NOTE | 2020-09-25 14:20 | Progress Note ---
Assessment and Plan Acute hypoxemic respiratory failure Status asthmaticus History of pulmonary embolism - continue to wean supplemental oxygen to keep O2 sats > 90% - continue Bronchodilators (BRITTANY & LABA) with pulm hygiene per RT - taper systemic steroids (reduced to 40 mg IV q12h) - continue inhaled corticosteroids - continue to avoid nephrotoxins, renally dose all medications - continue mobility protocols to prevent pressure ulcers - PT/OT as tolerated - Wound care per RN/WCT - continue accuchecks with glycemic control per SSI for target blood glucose < 180 mg/dL - tobacco abstinence strongly counseled at the bedside - home oxygen evaluation at discharge - GI & VTE prophylaxis - Flu & pneumovax per protocol - Pulmonary out patient follow up for PFTs and optimization of respiratory status - continue other care per attending / other consultants - prn analgesia per pain score ... re-evaluate in am & prn Subjective Date of service: 09/25/20 Principal diagnosis: Acute hypoxemic resp failure; Status asthmaticus; H/O pulmonary embolism Interval history: Patient is seen today for: Acute hypoxemic respiratory failure; Status asthmaticus; History of pulmonary embolism Seen and examined at bedside; 24hour events reviewed; nursing and respiratory care staff consulted; no adverse overnight events reported to me; resting peacefully in bed; she feels like she is ready to go home; still coughing but expectoration has gone from green to clear; denies chest pain; states that she has her home inhalers which include LAMA & ICS; Asthmatic since age [age] and states she will not leave if she did not "know her symptoms" Objective Vital Signs - 12hr 09/25/20 09/25/20 09/25/20 01:42 04:02 07:00 Temperature 97.9 F Pulse Rate 86 Pulse Rate [ 85 50 L Bilateral Throughout] Respiratory 20 Rate Respiratory 18 17 Rate [Bilateral Throughout] Blood Pressure 119/63 O2 Sat by Pulse 94 Oximetry 09/25/20 09/25/20 09/25/20 07:38 09:45 10:00 Temperature 98.2 F Pulse Rate 68 48 L Pulse Rate [ Bilateral Throughout] Respiratory 18 22 Rate Respiratory Rate [Bilateral Throughout] Blood Pressure 123/75 O2 Sat by Pulse 93 94 98 Oximetry 09/25/20 11:47 Temperature 98.2 F Pulse Rate 64 Pulse Rate [ Bilateral Throughout] Respiratory 18 Rate Respiratory Rate [Bilateral Throughout] Blood Pressure 115/71 O2 Sat by Pulse 93 Oximetry Constitutional: no acute distress, alert, other (young thin female with noirmal respiratory effort at rest) Eyes: non-icteric ENT: oropharynx moist Neck: supple Effort: normal Ascultation: Bilateral: wheezes (faint; expiratory), other (no accessory muscle use) Percussion: Bilateral: not dull Cardiovascular: regular rate and rhythm Gastrointestinal: normoactive bowel sounds, soft, non-tender, non-distended Integumentary: normal Extremities: no cyanosis, no edema, pulses normal, no ischemia or petechiae Neurologic: normal mental status, non-focal exam, pupils equal and round, motor strength normal and Psychiatric: mood appropriate CBC and BMP: 09/25/20 04:55 09/24/20 04:54 ABG, PT/INR, D-dimer: PT/INR, D-dimer PT 13.8 Sec. (12.2-14.9) 09/23/20 13:40 INR 1.07 (0.87-1.13) 09/23/20 13:40 Abnormal lab findings: Abnormal Labs 09/23/20 09/23/20 09/23/20 03:18 03:18 08:34 WBC 14.4 H MCH MCHC RDW Lymph % (Auto) [place] % (Auto) Lymph # (Auto) [place] # (Auto) Seg Neutrophils % Seg Neuts % (Manual) 93.0 H Lymphocytes % (Manual) 2.0 L Seg Neutrophils # Seg Neutrophils # Man 13.4 H Lymphocytes # (Manual) 0.3 L Sodium 136 L Potassium 3.4 L Carbon Dioxide 18 L BUN 5 L Creatinine Glucose 239 H POC Glucose 208 H 09/23/20 09/23/20 09/23/20 11:29 13:40 13:40 WBC 14.3 H MCH 33 H MCHC 35 H RDW 13.1 L Lymph % (Auto) [place] % (Auto) Lymph # (Auto) [place] # (Auto) Seg Neutrophils % Seg Neuts % (Manual) Lymphocytes % (Manual) Seg Neutrophils # Seg Neutrophils # Man Lymphocytes # (Manual) Sodium Potassium Carbon Dioxide BUN Creatinine 0.5 L Glucose POC Glucose 181 H 09/23/20 09/23/20 09/24/20 16:54 21:03 04:54 WBC 17.7 H MCH 33 H MCHC 35 H RDW Lymph % (Auto) 4.0 L [place] % (Auto) 11.3 H Lymph # (Auto) 0.7 L [place] # (Auto) 2.0 H Seg Neutrophils % 84.6 H Seg Neuts % (Manual) Lymphocytes % (Manual) Seg Neutrophils # 14.9 H Seg Neutrophils # Man Lymphocytes # (Manual) Sodium Potassium Carbon Dioxide BUN Creatinine Glucose POC Glucose 119 H 124 H 09/24/20 09/24/20 09/24/20 04:54 08:36 11:32 WBC MCH MCHC RDW Lymph % (Auto) [place] % (Auto) Lymph # (Auto) [place] # (Auto) Seg Neutrophils % Seg Neuts % (Manual) Lymphocytes % (Manual) Seg Neutrophils # Seg Neutrophils # Man Lymphocytes # (Manual) Sodium Potassium Carbon Dioxide BUN Creatinine Glucose 109 H POC Glucose 116 H 117 H 09/24/20 09/24/20 09/25/20 17:06 20:42 04:55 WBC 16.1 H MCH MCHC RDW Lymph % (Auto) [place] % (Auto) Lymph # (Auto) [place] # (Auto) Seg Neutrophils % Seg Neuts % (Manual) Lymphocytes % (Manual) Seg Neutrophils # Seg Neutrophils # Man Lymphocytes # (Manual) Sodium Potassium Carbon Dioxide BUN Creatinine Glucose POC Glucose 123 H 179 H 09/25/20 09/25/20 07:46 11:54 WBC MCH MCHC RDW Lymph % (Auto) [place] % (Auto) Lymph # (Auto) [place] # (Auto) Seg Neutrophils % Seg Neuts % (Manual) Lymphocytes % (Manual) Seg Neutrophils # Seg Neutrophils # Man Lymphocytes # (Manual) Sodium Potassium Carbon Dioxide BUN Creatinine Glucose POC Glucose 130 H 122 H Chest x-ray: other (none today) Allied health notes reviewed: nursing
--- NOTE | 2020-09-25 14:36 | Discharge Summary ---
Providers - Providers Date of Admission: 09/23/20 04:41 Date of discharge: 09/25/20 Attending physician: BARBARA RAWLS 09/23/20 04:41 Consult to Physician [CONS] Routine Comment: Consulting Provider: LUZ MARIA ROBERSON Physician Instructions: Reason For Exam: acute a/e asthma, faile do/p treatment Primary care physician: DICER MACHINE OPERATOR Hospitalization Condition: Fair Hospital course: 20-year-old -[place] female with history of severe persistent asthma who presents to [facility] ED with complaints of asthma attack. Patient complains of productive cough with yellow sputum production, chest tightness, shortness of breath and wheezing x1 day. Patient went to outpatient facility ([facility]) for treatment, was given a dose of nebulizer treatments and and was discharged home. After returning home her symptoms did not improve, but rather worsened. EMS was called, and she was transported to our facility for further treatment and evaluation. Of note patient has history severe persistent asthma requiring several hospitalizations. Denies fever, chills, N/V/D, hemoptysis, abdominal pain, loss of smell, loss of taste, myalgias, chest pain, palpitation, or recent sick contacts. Here in the ER, patient was found to have acute hypoxic respiratory failure secondary to asthma exacerbation and patient was placed on BiPAP. She was started on high-dose steroids and antibiotics and admitted to the hospital. Pulmonology was consulted. 09/24. Patient was weaned off BiPAP today. Remains on high-dose steroids which is currently being tapered. Pulmonology recommendations appreciated 09/25. Patient remains on IV antibiotics and steroids. Patient had a walk test today and oxygen level remained above 90%. She is very eager to go home today. She will be discharged to follow-up with her cnc set up operator in 1 week. She will complete prednisone and antibiotics at home. She agrees with treatment Disposition: DC- TO HOME OR SELFCARE Final Discharge Diagnosis (Prints w/discharge instructions): Acute hypoxic respiratory failure secondary to asthma exacerbation Time spent for discharge: 40 minutes Core Measure Documentation - Palliative Care Palliative Care/ Comfort Measures: Not Applicable - Core Measures Any of the following diagnoses?: none Exam - Physical Exam Narrative exam: VITAL SIGNS: Reviewed. GENERAL: Awake HEAD: No signs of head trauma. EYES: Pupils are equal. Extraocular motions intact. MOUTH: Oropharynx is normal. NECK: No adenopathy, no JVD. CHEST: Wheezes CARDIAC: normal S1 and S2, without murmurs, gallops, or rubs. ABDOMEN: Soft, non tender and non distended. No rebound or guarding, and no masses palpated. Bowel Sounds normal. MUSCULOSKELETAL: No edema NEUROLOGIC EXAM: Alert and oriented x3. No focal neurologic deficits SKIN: No obvious lesions - Constitutional Vitals: Temp Pulse Resp BP Pulse Ox 98.2 F 64 18 115/71 93 09/25/20 11:47 09/25/20 11:47 09/25/20 11:47 09/25/20 11:47 09/25/20 11:47 Plan Additional Instructions: Continue prednisone as ordered. Complete antibiotics. Continue albuterol as needed. Follow-up with cnc set up operator in 1 week Follow up with: PRIMARY MD SHAQ [Primary Care Provider] - 7 Days AVIS GARZA MD [Staff Physician] - 7 Days Prescriptions: Montelukast [Singulair] 10 mg PO QHS #30 tablet predniSONE [Deltasone] 50 mg PO QDAY #5 tab levoFLOXacin [Levaquin TAB] 500 mg PO QDAY #3 tablet guaiFENesin ER [Mucinex ER] 600 mg PO BID #20 tablet Albuterol Mdi (or & Nicu Only) [ProAir HFA Inhaler] 1 puff IH TID PRN #1 inh PRN Reason: Wheezing
[2020-09-25] MEDS ORDERED: methylPREDNISolone Sod Succinate 40 MG/1 ML INJ IV SCH (15:00)
[2020-09-25 17:01] VITALS: BP 107/65
== END 2020-09-25 17:00 | disposition home or self-care (01) | DRG 189 ==
LOC: ED 03:01 → 3A 04:41 → 4A 05:25
PROVIDERS: ADMIT Hospitalist; ATTEND Internal Medicine
PROC: 5A09457 Assistance with Respiratory Ventilation, 24-96 Consecutive Hours, Continuous Positive Airway Pressure (ICD-10-PCS; principal; 2020-09-23)
DX: J96.01 Acute respiratory failure with hypoxia (principal); J45.902 Unspecified asthma with status asthmaticus; E87.6 Hypokalemia; R73.9 Hyperglycemia, unspecified; Z91.041 Radiographic dye allergy status; Z83.3 Family history of diabetes mellitus; Z82.49 Family history of ischemic heart disease and other diseases of the circulatory system; Z86.16 Personal history of COVID-19; Z86.711 Personal history of pulmonary embolism
CPT/HCPCS: 36415; 71045; 80048; 82565; 82962; 83036; 85007; 85025; 85027; 85610; 85730; 87040; 94640; 94644; G0378; J1644; J1815; J1956; J2920; J2930; J3475; J7030

== ENCOUNTER 2021-01-08 09:40 | Emergency (ER) | payer BC ==
[2021-01-08 09:49] VITALS: BP 104/55
[2021-01-08] MEDS ORDERED: ALBUTEROL 2.5 MG/3 ML NEBU IH ONE (09:53)
[2021-01-08] MEDS ORDERED: IPRATROPIUM 0.02% NEBU 2.5 ML IH ONE (09:53)
[2021-01-08] MEDS ORDERED: dexAMETHasone 20 MG/5 ML VIAL IM ONE (09:53)
--- NOTE | 2021-01-08 10:12 | Event Note ---
ED Screening Note Date of service: 01/08/21 Time: 09:52 ED Screening Note: This initial assessment/diagnostic orders/clinical plan/treatment(s) is/are subject to change based on patients health status, clinical progression and re- assessment by fellow clinical providers in the ED. Further treatment and workup at subsequent clinical providers discretion. Patient/guardian urged not to elope from the ED as their condition may be serious if not clinically assessed and managed. Initial orders include:
--- NOTE | 2021-01-08 10:18 | Emergency Department Report ---
ED Asthma HPI - General Chief Complaint: Adult Asthma Stated Complaint: ASTHMA Source: patient Mode of arrival: Ambulatory Limitations: No Limitations - History of Present Illness Initial Comments: 20-year-old -Liberian female with a past medical history of asthma presents to the emergency room having asthma symptoms. Patient been suffering from 2 days worth of wheezing shortness of breath. Patient states she has been trying to use her inhaler without any relief. Denies ever being intubated. She does admit to hospitalization for asthma. Patient reports that in May she tested positive for Covid and had 2 pulmonary embolisms. Patient is vaccinated now. She admits that she has been suffering from lung issues since having Covid. MD Complaint: "asthma attack", shortness of breath, wheezing Onset/Timin -: days(s) Asthma History: childhood onset Context: none known Associated Symptoms: denies: fever - Related Data Current Asthma Therapy: inhaled bronchodilator Previous Rx's Medication Instructions Recorded Last Taken Type Montelukast [Singulair] 10 mg PO QHS #30 tablet 09/25/20 Unknown Rx guaiFENesin ER [Mucinex ER] 600 mg PO BID #20 tablet 09/25/20 Unknown Rx levoFLOXacin [Levaquin TAB] 500 mg PO QDAY #3 tablet 09/25/20 Unknown Rx Albuterol Mdi (or & Nicu Only) 1 puff IH TID PRN #1 inh 01/08/21 Unknown Rx [ProAir HFA Inhaler] Ipratropium [Atrovent] 0.5 mg IH Q8HRT PRN #1 box 01/08/21 Unknown Rx predniSONE [Deltasone] 50 mg PO QDAY #5 tab 01/08/21 Unknown Rx Allergies Allergy/AdvReac Type Severity Reaction Status Date / Time iodine Allergy Unknown Verified 01/08/21 09:42 ED Review of Systems ROS: Stated complaint: ASTHMA Other details as noted in HPI Comment: All other systems reviewed and negative ED Past Medical Hx - Past Medical History Hx Asthma: Yes - Surgical History Past Surgical History?: Yes - Social History Smoking Status: Never Smoker - Medications Home Medications: Home Medications Medication Instructions Recorded Confirmed Last Taken Type Montelukast [Singulair] 10 mg PO QHS #30 tablet 09/25/20 Unknown Rx guaiFENesin ER [Mucinex ER] 600 mg PO BID #20 tablet 09/25/20 Unknown Rx levoFLOXacin [Levaquin TAB] 500 mg PO QDAY #3 tablet 09/25/20 Unknown Rx Albuterol Mdi (or & Nicu Only) 1 puff IH TID PRN #1 inh 01/08/21 Unknown Rx [ProAir HFA Inhaler] Ipratropium [Atrovent] 0.5 mg IH Q8HRT PRN #1 box 01/08/21 Unknown Rx predniSONE [Deltasone] 50 mg PO QDAY #5 tab 01/08/21 Unknown Rx ED Physical Exam - General Limitations: No Limitations General appearance: alert, in distress - Head Head exam: Present: atraumatic, normocephalic - Eye Eye exam: Present: normal appearance, other (wears glasses) - ENT ENT exam: Present: mucous membranes moist - Neck Neck exam: Present: normal inspection, full ROM - Respiratory Respiratory exam: Present: wheezes, rhonchi, prolonged expiratory - Cardiovascular Cardiovascular Exam: Present: tachycardia - GI/Abdominal GI/Abdominal exam: Present: soft, normal bowel sounds. Absent: distended - Extremities Exam Extremities exam: Present: normal inspection, full ROM - Back Exam Back exam: Present: normal inspection, full ROM - Neurological Exam Neurological exam: Present: alert, oriented X3, normal gait - Psychiatric Psychiatric exam: Present: normal affect, normal mood - Skin Skin exam: Present: warm, dry, intact, normal color. Absent: rash ED Course Vital Signs 01/08/21 01/08/21 09:45 09:47 Temperature 99.1 F Pulse Rate 124 H Respiratory 18 Rate Blood Pressure 104/55 [Right] O2 Sat by Pulse 96 Oximetry - Reevaluation(s) Reevaluation #1: 01/08/21 11:05 Patient sounds much better but still has expiratory rhonchorous wheeze. Patient states she feels better she feels that she can be discharged home on appropriate medications. ED Medical Decision Making - Medical Decision Making 20-year-old -Liberian female with a past medical history of asthma presents to the emergency room having asthma symptoms. Patient been suffering from 2 days worth of wheezing shortness of breath. Patient states she has been trying to use her inhaler without any relief. Denies ever being intubated. She does admit to hospitalization for asthma. Patient reports that in May she tested positive for Covid and had 2 pulmonary embolisms. Patient is vaccinated now. She admits that she has been suffering from lung issues since having Covid. Patient has been ordered breathing treatments Atrovent 1 mg inhalation, albuterol 10 mg inhalation and dexamethasone 10 mg IM. Patient is having her treatment done in a messy room in triage. Critical care attestation.: If time is entered above; I have spent that time in minutes in the direct care of this critically ill patient, excluding procedure time. ED Disposition Clinical Impression: Asthma attack Disposition: HOME / SELF CARE / HOMELESS Is pt being admited?: No Does the pt Need Aspirin: No Condition: Stable Instructions: Asthma and Physical Activity Additional Instructions: Complete your prednisone as prescribed use your inhaler and nebulizer as prescribed. Follow-up with your primary care provider. Prescriptions: Ipratropium [Atrovent] 0.5 mg IH Q8HRT PRN #1 box PRN Reason: Wheezing predniSONE [Deltasone] 50 mg PO QDAY #5 tab Albuterol Mdi (or & Nicu Only) [ProAir HFA Inhaler] 1 puff IH TID PRN #1 inh PRN Reason: Wheezing Referrals: [facility] [Outside] - 3-5 Days [facility] [Outside] - 3-5 Days Forms: Work/School Release Form(ED)
== END 2021-01-08 11:38 | disposition home or self-care (01) ==
LOC: ED 09:40
DX: J45.909 Unspecified asthma, uncomplicated (principal); Z91.041 Radiographic dye allergy status
CPT/HCPCS: 94640; 96372; 99282; J1100

== ENCOUNTER 2021-03-01 02:05 | Observation (INO) | payer BC ==
[2021-03-01] MEDS ORDERED: ALBUTEROL 2.5 MG/3 ML NEBU IH ONE ×3 (02:27→12:54)
[2021-03-01] MEDS ORDERED: diphenhydrAMINE 50 MG/ML VIAL IV STA (02:27)
[2021-03-01] MEDS ORDERED: dexAMETHasone 20 MG/5 ML VIAL IV ONE (02:28)
[2021-03-01] MEDS ORDERED: IPRATROPIUM 0.02% NEBU 2.5 ML IH ONE (02:28)
--- NOTE | 2021-03-01 04:58 | XRay Report ---
CHEST 2 VIEWS INDICATION / CLINICAL INFORMATION: sob and cougjh. COMPARISON: 09/23/2020 FINDINGS: SUPPORT DEVICES: None. HEART / MEDIASTINUM: No significant abnormality. LUNGS / PLEURA: No significant pulmonary or pleural abnormality. No pneumothorax. ADDITIONAL FINDINGS: No significant additional findings. IMPRESSION: 1. No acute findings. Signer Name: Adonis Limon MD Signed: 03/01/2021 4:53 AM Workstation Name: [id number]
[2021-03-01] MEDS ORDERED: EPINEPHrine/PF 1 MG/1 ML INJ SUB-Q ONE (06:28)
--- NOTE | 2021-03-01 06:33 | Emergency Department Report ---
<CYNDI HOLT - Last Filed: 03/01/21 07:30> ED Asthma HPI - General Chief Complaint: Dyspnea/Respdistress Stated Complaint: ASTHMA ATTACK Time Seen by Provider: 03/01/21 02:26 Source: patient Mode of arrival: Ambulatory Limitations: No Limitations - History of Present Illness Initial Comments: 20-year-old female with known history of asthma and frequent asthma attacks this past several months presents emerged department complaining of another asthma flareup not responding to her home MDI. The patient states she also takes Advair but ran out of her medications. She reports no hemoptysis no hematemesis hematochezia no fever, chills, sweats, chest pain,, palpitations. Does have some tightness across her chest and some wheezing that has become auditory and a dry cough. No abdominal pain or diarrhea no known sick contacts no recent travel. -: Gradual Asthma History: childhood onset Severity: mild Context: recent URI, ran out of meds Associated Symptoms: none Treatments Prior to Arrival: inhaled bronchodilator - Related Data Current Asthma Therapy: none Previous Rx's Medication Instructions Recorded Last Taken Type Montelukast [Singulair] 10 mg PO QHS #30 tablet 09/25/20 Unknown Rx guaiFENesin ER [Mucinex ER] 600 mg PO BID #20 tablet 09/25/20 Unknown Rx levoFLOXacin [Levaquin TAB] 500 mg PO QDAY #3 tablet 09/25/20 Unknown Rx Albuterol Mdi (or & Nicu Only) 1 puff IH TID PRN #1 inh 01/08/21 Unknown Rx [ProAir HFA Inhaler] Ipratropium [Atrovent] 0.5 mg IH Q8HRT PRN #1 box 01/08/21 Unknown Rx predniSONE [Deltasone] 50 mg PO QDAY #5 tab 01/08/21 Unknown Rx Albuterol Mdi (or & Nicu Only) 2 puff IH QID PRN #1 inhalation 03/01/21 Unknown Rx [ProAir HFA Inhaler] Benzonatate [Tessalon Perles] 100 mg PO Q8HR #20 capsule 03/01/21 Unknown Rx Fluticasone/Salmeterol [Advair 1 puff IH BID #1 disk.w.dev 03/01/21 Unknown Rx Diskus 250-50 mcg] Montelukast [Singulair] 10 mg PO QPM #14 tablet 03/01/21 Unknown Rx predniSONE [Deltasone] 50 mg PO QDAY #5 tab 03/01/21 Unknown Rx Allergies Allergy/AdvReac Type Severity Reaction Status Date / Time iodine Allergy Unknown Verified 01/08/21 09:42 ED Review of Systems Comment: All other systems reviewed and negative ED Past Medical Hx - Past Medical History Hx Asthma: Yes - Social History Smoking Status: Never Smoker - Medications Home Medications: Home Medications Medication Instructions Recorded Confirmed Last Taken Type Montelukast [Singulair] 10 mg PO QHS #30 tablet 09/25/20 Unknown Rx guaiFENesin ER [Mucinex ER] 600 mg PO BID #20 tablet 09/25/20 Unknown Rx levoFLOXacin [Levaquin TAB] 500 mg PO QDAY #3 tablet 09/25/20 Unknown Rx Albuterol Mdi (or & Nicu Only) 1 puff IH TID PRN #1 inh 01/08/21 Unknown Rx [ProAir HFA Inhaler] Ipratropium [Atrovent] 0.5 mg IH Q8HRT PRN #1 box 01/08/21 Unknown Rx predniSONE [Deltasone] 50 mg PO QDAY #5 tab 01/08/21 Unknown Rx Albuterol Mdi (or & Nicu Only) 2 puff IH QID PRN #1 inhalation 03/01/21 Unknown Rx [ProAir HFA Inhaler] Benzonatate [Tessalon Perles] 100 mg PO Q8HR #20 capsule 03/01/21 Unknown Rx Fluticasone/Salmeterol [Advair 1 puff IH BID #1 disk.w.dev 03/01/21 Unknown Rx Diskus 250-50 mcg] Montelukast [Singulair] 10 mg PO QPM #14 tablet 03/01/21 Unknown Rx predniSONE [Deltasone] 50 mg PO QDAY #5 tab 03/01/21 Unknown Rx ED Physical Exam - General Limitations: No Limitations General appearance: alert, in no apparent distress - Head Head exam: Present: atraumatic, normocephalic - Eye Eye exam: Present: normal appearance - ENT ENT exam: Present: mucous membranes moist - Neck Neck exam: Present: normal inspection - Respiratory Respiratory exam: Present: normal lung sounds bilaterally, wheezes, other (Some increased work of breathing with speaking in full sentences). Absent: respiratory distress - Cardiovascular Cardiovascular Exam: Present: regular rate, normal rhythm. Absent: systolic murmur, diastolic murmur, rubs, gallop - GI/Abdominal GI/Abdominal exam: Present: soft, normal bowel sounds - Extremities Exam Extremities exam: Present: normal inspection, normal capillary refill - Back Exam Back exam: Present: normal inspection. Absent: CVA tenderness (R), CVA tenderness (L) - Neurological Exam Neurological exam: Present: alert, oriented X3, CN II-XII intact, normal gait - Psychiatric Psychiatric exam: Present: normal affect, normal mood - Skin Skin exam: Present: warm, dry, intact, normal color. Absent: rash ED Course - Reevaluation(s) Reevaluation #1: 03/01/21 04:19 Patient states that she is breathing easier although she still does feel some wheezing but denies any chest pain. Reevaluation #2: 03/01/21 06:29 [address] Ms. Hill she reports that she does feel that her chest is becoming more tight and she feels some shortness of breath trying to come on and is requesting another breathing treatment. Plan will have nurse to start an IV as they were unable to establish an IV upon my her entry into the emergency department to get magnesium and in conjunction with magnesium will also give albuterol neb x1 with epinephrine ED Medical Decision Making - Radiology Data Radiology results: report reviewed [address] [address] XRay Report Signed Patient: NATALIE HILL MR#: [id number] 298 : 2000 Acct:[id number] Age/Sex: 20 / F ADM Date: 03/01/21 Loc: ED Attending Dr: Ordering Physician: CHET ZARATE Date of Service: 03/01/21 Procedure(s): XR chest routine 2V Accession Number(s): [id number] cc: CHET ZARATE Fluoro Time In Minutes: CHEST 2 VIEWS INDICATION / CLINICAL INFORMATION: sob and cougjh. COMPARISON: 09/23/2020 FINDINGS: SUPPORT DEVICES: None. HEART / MEDIASTINUM: No significant abnormality. LUNGS / PLEURA: No significant pulmonary or pleural abnormality. No pneumothorax. ADDITIONAL FINDINGS: No significant additional findings. IMPRESSION: 1. No acute findings. Signer Name: Adonis Limon MD Signed: 03/01/2021 4:53 AM Workstation Name: [id number] Transcribed By: CAROLE Dictated By: OLIVIA ILMON MD Electronically Authenticated By: OLIVIA LIMON MD Signed Date/Time: 03/01/21452 DD/ 2 TD/TT: - Medical Decision Making No altered mental status, saddle respirations, belly breathing or other signs of impending ventilatory failure. No intubations or recent admissions to the hospital for asthma. Unlikely pneumonia, CHF, COPD, GERD Workup Review include a chest x-ray which was normal she also received steroids and albuterol Therapies: Prednisone 50 mg PO. Albuterol nebulizer Reassessment: Patient improved with albuterol and ipratropium in less than 3 hours. Disposition: Discharge home with return precautions. Advised to follow up with primary care physician within next 24-48 hours. Aside from this acute exacerbation patient has been well controlled on baseline home regimen. Rx short steroid course, albuterol, Singulair, Flovent Upon preparing patient for discharge she began to state that she feels some tightness to her chest and some wheezing at this point time we will give her another breathing treatment and cooperate a subcutaneous epinephrine. IV line will be placed to consider the need for magnesium. Will sign out the patient to my colleague Ms. Shannon who will follow up on the patient's response to the medications and proceed with the discharge home as expected should that remain to be the best option also advised her to make sure that she remains compliant with the Advair as missing Advair doses can can stimulate asthma exacerbation ED Disposition Clinical Impression: Status asthmaticus Disposition: 02 [facility]ORT TERM [facility]OSPITAL Is pt being admited?: No Does the pt Need Aspirin: No Condition: Stable Instructions: Cough, Adult, [id number], How to Use a Metered Dose Inhaler, Form - Asthma Action Plan, Adult, Peak Flow Meter, Asthma Attack, How to Use a Dry Powder Inhaler, [id number] Prescriptions: Fluticasone/Salmeterol [Advair Diskus 250-50 mcg] 1 puff IH BID #1 disk.w.dev predniSONE [Deltasone] 50 mg PO QDAY #5 tab Albuterol Mdi (or & Nicu Only) [ProAir HFA Inhaler] 2 puff IH QID PRN #1 inhalation PRN Reason: Shortness Of Breath Montelukast [Singulair] 10 mg PO QPM #14 tablet Benzonatate [Tessalon Perles] 100 mg PO Q8HR #20 capsule Referrals: PRIMARY CARE, [Primary Care Provider] - 3-5 Days [facility] [Provider Group] - 3-5 Days <NIKKI MUHAMMAD - Last Filed: 03/01/21 12:58> ED Review of Systems ROS: Stated complaint: ASTHMA ATTACK Other details as noted in HPI ED Physical Exam - Respiratory Respiratory exam: Present: rhonchi ED Course Vital Signs 03/01/21 03/01/21 03/01/21 03:13 05:07 10:43 Temperature 98.9 F 98.6 F 98.4 F Pulse Rate 92 H 104 H 89 Respiratory 30 H 22 18 Rate Blood Pressure Blood Pressure 139/74 106/58 115/48 [Left] O2 Sat by Pulse 96 96 100 Oximetry 03/01/21 03/01/21 03/01/21 11:24 11:31 11:44 Temperature Pulse Rate 98 H Respiratory 16 Rate Blood Pressure 109/59 109/59 Blood Pressure [Left] O2 Sat by Pulse 79 L 100 Oximetry 03/01/21 03/01/21 11:45 12:01 Temperature Pulse Rate 99 H 88 Respiratory 23 24 Rate Blood Pressure 109/59 112/61 Blood Pressure [Left] O2 Sat by Pulse 99 99 Oximetry - Reevaluation(s) Reevaluation #3: 03/01/21 08:54 Provider evaluated patient states she still feels tight in her chest. Examination shows diffuse rhonchus and wheezing. Reevaluation #4: 03/01/21 10:40 Reevaluated patient after she has had magnesium sulfate saline chest tightness is still the same. Hard to hear more on the right middle to lower lung field increase wheezing and rhonchorous. ED Medical Decision Making - Lab Data Result diagrams: 03/01/21 10:50 03/01/21 10:50 - Medical Decision Making Reevaluated patient still rhonchus wheezing and having chest tightness. Discussed with staff to place an IV and administer magnesium sulfate 2 g IV and a liter of normal saline. Requested vital signs to be retaken. Critical care attestation.: If time is entered above; I have spent that time in minutes in the direct care of this critically ill patient, excluding procedure time. ED Disposition Is pt being admited?: Yes Does the pt Need Aspirin: No
[2021-03-01] MEDS ORDERED: MAGNESIUM SULFATE 2 GM/50 ML BAG IV ONE (08:52)
[2021-03-01] MEDS ORDERED: SODIUM CHLORIDE 0.9% 1000 ML 1,000 ML IV ONE (08:52)
--- NOTE | 2021-03-01 11:07 | Event Note ---
Date of service: 03/01/21 Face to Face: For this encounter I have reviewed the PA/AMUSEMENT CENTRE MANAGER documentation, treatment plan, medical decision making, and I had face to face time with this patient. The patient was evaluated in the emergency department for symptoms described in the history of present illness. He/she was evaluated in the context of the global COVID-19 pandemic, which necessitated consideration that the patient might be at risk for infection with the virus that causes COVID-19. Institutional protocols and algorithms that pertain to the evaluation of patients at risk for COVID-19 are in a state of rapid change based on information released by regulatory bodies including the CDC and federal and state organizations. These policies and algorithms were followed during the patient's care in the emergency department. Please note that these policies, procedures and recommendations changed on a rapid basis. Patient seen and examined. Still having diffuse wheezing and rhonchi. In mild respiratory distress. Laboratory studies ABG reviewed and appreciated. Peak flow ordered. Denies physical pain. X-ray of the chest unremarkable. Have recommended admission to the medical service for asthma exacerbation. Have discussed this with the physician's assistant professor of philosophy. Discussed this with the patient. Physician assistants to follow-up on admission for the patient, as well as follow-up on peak flow. All questions answered. Lab Results 03/01/21 03/01/21 03/01/21 Range/Units 10:50 10:50 10:50 WBC 7.4 (4.5-11.0) K/mm3 RBC 3.95 (3.65-5.03) M/mm3 Hgb 12.5 (10.1-14.3) gm/dl Hct 36.9 (30.3-42.9) % MCV 93 (79-97) fl MCH 32 (28-32) pg MCHC 34 (30-34) % RDW 14.2 (13.2-15.2) % Plt Count 257 (140-440) K/mm3 Add Manual Diff Complete Total Counted 100 Seg Neutrophils % Lifestyle Director Seg Neuts % (Manual) 93.0 H (40.0-70.0) % Lymphocytes % (Manual) 7.0 L (13.4-35.0) % Nucleated RBC % Not Reportable Seg Neutrophils # Man 6.9 (1.8-7.7) K/mm3 Band Neutrophils # 0.0 K/mm3 Lymphocytes # (Manual) 0.5 L (1.2-5.4) K/mm3 Abs React Lymphs (Man) 0.0 K/mm3 Monocytes # (Manual) 0.0 (0.0-0.8) K/mm3 Eosinophils # (Manual) 0.0 (0.0-0.4) K/mm3 Basophils # (Manual) 0.0 (0.0-0.1) K/mm3 Metamyelocytes # 0.0 K/mm3 Myelocytes # 0.0 K/mm3 Promyelocytes # 0.0 K/mm3 Blast Cells # 0.0 K/mm3 WBC Morphology Not Reportable Hypersegmented Neuts Not Reportable Hyposegmented Neuts Not Reportable Hypogranular Neuts Not Reportable Smudge Cells Not Reportable Toxic Granulation Not Reportable Toxic Vacuolation Not Reportable Dohle Bodies Not Reportable Pelger-Huet Anomaly Not Reportable Sai Rods Not Reportable Platelet Estimate Consistent w auto Clumped Platelets Not Reportable Plt Clumps, EDTA Not Reportable Large Platelets Not Reportable Giant Platelets Not Reportable Platelet Satelliting Not Reportable Plt Morphology Comment Not Reportable RBC Morphology Normal Dimorphic RBCs Not Reportable Polychromasia Not Reportable Hypochromasia Not Reportable Poikilocytosis Not Reportable Anisocytosis Not Reportable Microcytosis Not Reportable Macrocytosis Not Reportable Spherocytes Not Reportable Pappenheimer Bodies Not Reportable Sickle Cells Not Reportable Target Cells Not Reportable Tear Drop Cells Not Reportable Ovalocytes Not Reportable Helmet Cells Not Reportable Kauffman-[place] Bodies Not Reportable [place] Rings Not Reportable [place] Cells Not Reportable Bite Cells Not Reportable Crenated Cell Not Reportable Elliptocytes Not Reportable Acanthocytes (Spur) Not Reportable Rouleaux Not Reportable Hemoglobin C Crystals Not Reportable Schistocytes Not Reportable Malaria parasites Not Reportable Deng Bodies Not Reportable Hem Pathologist Commnt No PT 14.5 (12.2-14.9) Sec. INR 1.02 (0.87-1.13) D-Dimer 166.31 (0-234) ng/mlDDU ABG pH (7.350-7.450) pH Units ABG pCO2 mm Hg ABG pO2 (80.0-90.0) mm Hg ABG HCO3 (20.0-26.0) mmol/L ABG O2 Saturation (95.0-99.0) % ABG O2 Content (0.0-44) ABG Base Excess (-2.0-3.0) mmol/L ABG Hemoglobin (12.0-16.0) gm/dl ABG Carboxyhemoglobin (0.0-5.0) % ABG Methemoglobin (0.0-1.5) % Oxyhemoglobin (95.0-99.0) % FiO2 % Sodium 139 (137-145) mmol/L Potassium 4.1 (3.6-5.0) mmol/L Chloride 108.1 H (98-107) mmol/L Carbon Dioxide 17 L (22-30) mmol/L Anion Gap 18 mmol/L BUN 8 (7-17) mg/dL Creatinine 0.7 (0.6-1.2) mg/dL Estimated GFR > 60 ml/min BUN/Creatinine Ratio 11 % Glucose 149 H (65-100) mg/dL Calcium 8.8 (8.4-10.2) mg/dL Total Bilirubin 0.80 (0.1-1.2) mg/dL AST 18 (5-40) units/L ALT 11 (7-56) units/L Alkaline Phosphatase 83 (35-129) units/L Total Protein 6.9 (6.3-8.2) g/dL Albumin 4.1 (3.9-5) g/dL Albumin/Globulin Ratio 1.5 % HCG, Quant (0-4) mIU/mL 03/01/21 03/01/21 Range/Units 11:12 12:00 WBC (4.5-11.0) K/mm3 RBC (3.65-5.03) M/mm3 Hgb (10.1-14.3) gm/dl Hct (30.3-42.9) % MCV (79-97) fl MCH (28-32) pg MCHC (30-34) % RDW (13.2-15.2) % Plt Count (140-440) K/mm3 Add Manual Diff Total Counted Seg Neutrophils % Seg Neuts % (Manual) (40.0-70.0) % Lymphocytes % (Manual) (13.4-35.0) % Nucleated RBC % Seg Neutrophils # Man (1.8-7.7) K/mm3 Band Neutrophils # K/mm3 Lymphocytes # (Manual) (1.2-5.4) K/mm3 Abs React Lymphs (Man) K/mm3 Monocytes # (Manual) (0.0-0.8) K/mm3 Eosinophils # (Manual) (0.0-0.4) K/mm3 Basophils # (Manual) (0.0-0.1) K/mm3 Metamyelocytes # K/mm3 Myelocytes # K/mm3 Promyelocytes # K/mm3 Blast Cells # K/mm3 WBC Morphology Hypersegmented Neuts Hyposegmented Neuts Hypogranular Neuts Smudge Cells Toxic Granulation Toxic Vacuolation Dohle Bodies Pelger-Huet Anomaly Sai Rods Platelet Estimate Clumped Platelets Plt Clumps, EDTA Large Platelets Giant Platelets Platelet Satelliting Plt Morphology Comment RBC Morphology Dimorphic RBCs Polychromasia Hypochromasia Poikilocytosis Anisocytosis Microcytosis Macrocytosis Spherocytes Pappenheimer Bodies Sickle Cells Target Cells Tear Drop Cells Ovalocytes Helmet Cells Kauffman-[place] Bodies [place] Rings Vanessa Cells Bite Cells Crenated Cell Elliptocytes Acanthocytes (Spur) Rouleaux Hemoglobin C Crystals Schistocytes Malaria parasites Deng Bodies Hem Pathologist Commnt PT (12.2-14.9) Sec. INR (0.87-1.13) D-Dimer (0-234) ng/mlDDU ABG pH 7.391 (7.350-7.450) pH Units ABG pCO2 30.4 mm Hg ABG pO2 85.9 (80.0-90.0) mm Hg ABG HCO3 18.0 L (20.0-26.0) mmol/L ABG O2 Saturation 96.8 (95.0-99.0) % ABG O2 Content 17.2 (0.0-44) ABG Base Excess -5.8 L (-2.0-3.0) mmol/L ABG Hemoglobin 12.8 (12.0-16.0) gm/dl ABG Carboxyhemoglobin 1.2 (0.0-5.0) % ABG Methemoglobin 0.5 (0.0-1.5) % Oxyhemoglobin 95.1 (95.0-99.0) % FiO2 21 % Sodium (137-145) mmol/L Potassium (3.6-5.0) mmol/L Chloride (98-107) mmol/L Carbon Dioxide (22-30) mmol/L Anion Gap mmol/L BUN (7-17) mg/dL Creatinine (0.6-1.2) mg/dL Estimated GFR ml/min BUN/Creatinine Ratio % Glucose (65-100) mg/dL Calcium (8.4-10.2) mg/dL Total Bilirubin (0.1-1.2) mg/dL AST (5-40) units/L ALT (7-56) units/L Alkaline Phosphatase (35-129) units/L Total Protein (6.3-8.2) g/dL Albumin (3.9-5) g/dL Albumin/Globulin Ratio % HCG, Quant < 2 (0-4) mIU/mL Vital Signs 03/01/21 03/01/21 03/01/21 03:13 05:07 10:43 Temperature 98.9 F 98.6 F 98.4 F Pulse Rate 92 H 104 H 89 Respiratory 30 H 22 18 Rate Blood Pressure Blood Pressure 139/74 106/58 115/48 [Left] O2 Sat by Pulse 96 96 100 Oximetry 03/01/21 03/01/21 03/01/21 11:24 11:31 11:44 Temperature Pulse Rate 98 H Respiratory 16 Rate Blood Pressure 109/59 109/59 Blood Pressure [Left] O2 Sat by Pulse 79 L 100 Oximetry 03/01/21 03/01/21 11:45 12:01 Temperature Pulse Rate 99 H 88 Respiratory 23 24 Rate Blood Pressure 109/59 112/61 Blood Pressure [Left] O2 Sat by Pulse 99 99 Oximetry Lab Results 03/01/21 03/01/21 03/01/21 Range/Units 10:50 10:50 10:50 WBC 7.4 (4.5-11.0) K/mm3 RBC 3.95 (3.65-5.03) M/mm3 Hgb 12.5 (10.1-14.3) gm/dl Hct 36.9 (30.3-42.9) % MCV 93 (79-97) fl MCH 32 (28-32) pg MCHC 34 (30-34) % RDW 14.2 (13.2-15.2) % Plt Count 257 (140-440) K/mm3 Add Manual Diff Complete Total Counted 100 Seg Neutrophils % Lifestyle Director Seg Neuts % (Manual) 93.0 H (40.0-70.0) % Lymphocytes % (Manual) 7.0 L (13.4-35.0) % Nucleated RBC % Not Reportable Seg Neutrophils # Man 6.9 (1.8-7.7) K/mm3 Band Neutrophils # 0.0 K/mm3 Lymphocytes # (Manual) 0.5 L (1.2-5.4) K/mm3 Abs React Lymphs (Man) 0.0 K/mm3 Monocytes # (Manual) 0.0 (0.0-0.8) K/mm3 Eosinophils # (Manual) 0.0 (0.0-0.4) K/mm3 Basophils # (Manual) 0.0 (0.0-0.1) K/mm3 Metamyelocytes # 0.0 K/mm3 Myelocytes # 0.0 K/mm3 Promyelocytes # 0.0 K/mm3 Blast Cells # 0.0 K/mm3 WBC Morphology Not Reportable Hypersegmented Neuts Not Reportable Hyposegmented Neuts Not Reportable Hypogranular Neuts Not Reportable Smudge Cells Not Reportable Toxic Granulation Not Reportable Toxic Vacuolation Not Reportable Dohle Bodies Not Reportable Pelger-Huet Anomaly Not Reportable Sai Rods Not Reportable Platelet Estimate Consistent w auto Clumped Platelets Not Reportable Plt Clumps, EDTA Not Reportable Large Platelets Not Reportable Giant Platelets Not Reportable Platelet Satelliting Not Reportable Plt Morphology Comment Not Reportable RBC Morphology Normal Dimorphic RBCs Not Reportable Polychromasia Not Reportable Hypochromasia Not Reportable Poikilocytosis Not Reportable Anisocytosis Not Reportable Microcytosis Not Reportable Macrocytosis Not Reportable Spherocytes Not Reportable Pappenheimer Bodies Not Reportable Sickle Cells Not Reportable Target Cells Not Reportable Tear Drop Cells Not Reportable Ovalocytes Not Reportable Helmet Cells Not Reportable Kauffman-[place] Bodies Not Reportable [place] Rings Not Reportable [place] Cells Not Reportable Bite Cells Not Reportable Crenated Cell Not Reportable Elliptocytes Not Reportable Acanthocytes (Spur) Not Reportable Rouleaux Not Reportable Hemoglobin C Crystals Not Reportable Schistocytes Not Reportable Malaria parasites Not Reportable Degn Bodies Not Reportable Hem Pathologist Commnt No PT 14.5 (12.2-14.9) Sec. INR 1.02 (0.87-1.13) D-Dimer 166.31 (0-234) ng/mlDDU ABG pH (7.350-7.450) pH Units ABG pCO2 mm Hg ABG pO2 (80.0-90.0) mm Hg ABG HCO3 (20.0-26.0) mmol/L ABG O2 Saturation (95.0-99.0) % ABG O2 Content (0.0-44) ABG Base Excess (-2.0-3.0) mmol/L ABG Hemoglobin (12.0-16.0) gm/dl ABG Carboxyhemoglobin (0.0-5.0) % ABG Methemoglobin (0.0-1.5) % Oxyhemoglobin (95.0-99.0) % FiO2 % Sodium 139 (137-145) mmol/L Potassium 4.1 (3.6-5.0) mmol/L Chloride 108.1 H (98-107) mmol/L Carbon Dioxide 17 L (22-30) mmol/L Anion Gap 18 mmol/L BUN 8 (7-17) mg/dL Creatinine 0.7 (0.6-1.2) mg/dL Estimated GFR > 60 ml/min BUN/Creatinine Ratio 11 % Glucose 149 H (65-100) mg/dL Calcium 8.8 (8.4-10.2) mg/dL Total Bilirubin 0.80 (0.1-1.2) mg/dL AST 18 (5-40) units/L ALT 11 (7-56) units/L Alkaline Phosphatase 83 (35-129) units/L Total Protein 6.9 (6.3-8.2) g/dL Albumin 4.1 (3.9-5) g/dL Albumin/Globulin Ratio 1.5 % HCG, Quant (0-4) mIU/mL 03/01/21 03/01/21 Range/Units 11:12 12:00 WBC (4.5-11.0) K/mm3 RBC (3.65-5.03) M/mm3 Hgb (10.1-14.3) gm/dl Hct (30.3-42.9) % MCV (79-97) fl MCH (28-32) pg MCHC (30-34) % RDW (13.2-15.2) % Plt Count (140-440) K/mm3 Add Manual Diff Total Counted Seg Neutrophils % Seg Neuts % (Manual) (40.0-70.0) % Lymphocytes % (Manual) (13.4-35.0) % Nucleated RBC % Seg Neutrophils # Man (1.8-7.7) K/mm3 Band Neutrophils # K/mm3 Lymphocytes # (Manual) (1.2-5.4) K/mm3 Abs React Lymphs (Man) K/mm3 Monocytes # (Manual) (0.0-0.8) K/mm3 Eosinophils # (Manual) (0.0-0.4) K/mm3 Basophils # (Manual) (0.0-0.1) K/mm3 Metamyelocytes # K/mm3 Myelocytes # K/mm3 Promyelocytes # K/mm3 Blast Cells # K/mm3 WBC Morphology Hypersegmented Neuts Hyposegmented Neuts Hypogranular Neuts Smudge Cells Toxic Granulation Toxic Vacuolation Dohle Bodies Pelger-Huet Anomaly Sai Rods Platelet Estimate Clumped Platelets Plt Clumps, EDTA Large Platelets Giant Platelets Platelet Satelliting Plt Morphology Comment RBC Morphology Dimorphic RBCs Polychromasia Hypochromasia Poikilocytosis Anisocytosis Microcytosis Macrocytosis Spherocytes Pappenheimer Bodies Sickle Cells Target Cells Tear Drop Cells Ovalocytes Helmet Cells Kauffman-[place] Bodies [place] Rings [place] Cells Bite Cells Crenated Cell Elliptocytes Acanthocytes (Spur) Rouleaux Hemoglobin C Crystals Schistocytes Malaria parasites Deng Bodies Hem Pathologist Commnt PT (12.2-14.9) Sec. INR (0.87-1.13) D-Dimer (0-234) ng/mlDDU ABG pH 7.391 (7.350-7.450) pH Units ABG pCO2 30.4 mm Hg ABG pO2 85.9 (80.0-90.0) mm Hg ABG HCO3 18.0 L (20.0-26.0) mmol/L ABG O2 Saturation 96.8 (95.0-99.0) % ABG O2 Content 17.2 (0.0-44) ABG Base Excess -5.8 L (-2.0-3.0) mmol/L ABG Hemoglobin 12.8 (12.0-16.0) gm/dl ABG Carboxyhemoglobin 1.2 (0.0-5.0) % ABG Methemoglobin 0.5 (0.0-1.5) % Oxyhemoglobin 95.1 (95.0-99.0) % FiO2 21 % Sodium (137-145) mmol/L Potassium (3.6-5.0) mmol/L Chloride (98-107) mmol/L Carbon Dioxide (22-30) mmol/L Anion Gap mmol/L BUN (7-17) mg/dL Creatinine (0.6-1.2) mg/dL Estimated GFR ml/min BUN/Creatinine Ratio % Glucose (65-100) mg/dL Calcium (8.4-10.2) mg/dL Total Bilirubin (0.1-1.2) mg/dL AST (5-40) units/L ALT (7-56) units/L Alkaline Phosphatase (35-129) units/L Total Protein (6.3-8.2) g/dL Albumin (3.9-5) g/dL Albumin/Globulin Ratio % HCG, Quant < 2 (0-4) mIU/mL
[2021-03-01 11:28] LABS: Hematocrit 36.9 % (30.3-42.9); Hemoglobin 12.5 gm/dl (10.1-14.3); Mean Corpuscular HGB Conc 34 % (30-34); Mean Corpuscular Volume 93 fl (79-97); Platelet Count 257 K/mm3 (140-440); Red Blood Count 3.95 M/mm3 (3.65-5.03); Red Cell Distribution Width 14.2 % (13.2-15.2)
[2021-03-01 11:52] LABS: INR 1.02 (0.87-1.13)
[2021-03-01 11:54] LABS: Alanine Aminotransferase 11 units/L (7-56); Albumin 4.1 g/dL (3.9-5); Blood Urea Nitrogen 8 mg/dL (7-17); Calcium 8.8 mg/dL (8.4-10.2); Hemolysis Index 15
[2021-03-01 11:55] LABS: BUN/Creatinine Ratio 11
[2021-03-01 12:15] LABS: ABG Base Excess -5.8 mmol/L (-2.0-3.0); ABG Methemoglobin 0.5 % (0.0-1.5); ABG Oxygen Saturation 96.8 % (95.0-99.0); ABG PCO2 30.4 mm Hg; ABG PH 7.391 pH Units (7.350-7.450); ABG PO2 85.9 mm Hg (80.0-90.0)
[2021-03-01 12:30] LABS: Platelet Estimate Consistent w Auto; RBC Morphology Normal
[2021-03-01 12:37] LABS: Total Cells Counted 100
[2021-03-01] MEDS ORDERED: ONDANSETRON 4 MG/2 ML INJ IV PRN (15:29)
[2021-03-01] MEDS ORDERED: HYDROmorphone 1 MG/1 ML INJ IV PRN (15:29)
[2021-03-01] MEDS ORDERED: oxyCODONE /ACETAMINOPHEN 5-325MG TAB PO PRN (15:29)
[2021-03-01] MEDS ORDERED: ACETAMINOPHEN 325 MG TAB PO PRN (15:29)
--- NOTE | 2021-03-01 15:34 | History and Physical Report ---
History of Present Illness Chief complaint: I cannot breathe History of present illness: 20 YO Female with Moderate Persistent Asthma, PE S/P coronavirus infection not currently taking therapeutic anticoagulation, Seasonal Allergies presents to ED for evaluation. Patient reports "I cannot breathe". Patient is in moderate respiratory distress at the time my evaluation and provides limited history. Patient states that she cannot breathe and has been experiencing the aforementioned symptoms over the past 1 day. Patient was seen and evaluated by her manager installation and treated as an outpatient with oral steroid therapy and increased bronchodilator therapy without relief. Patient is using accessory muscles to breathe, patient is sitting up in bed, tripoding with audible wheezing, unable to speak in complete sentences. Patient transported to [facility] via private vehicle for further care and evaluation of the aforementioned symptoms. The patient was seen and evaluated in the emergency department. All lab and i maging studies reviewed. Patient was found to have a pulse oximetry of 87% with exertion on room air which is consistent with acute hypoxemic respiratory failure. Patient treated with nebulizer and steroid therapy without significant relief of symptoms. Patient admitted to medical floor due to increased risk of worsening symptoms. No reports of fever, chills, chest pain, palpitation, skin rash, recent contact, or known exposure to COVID-19. Patient is vaccinated against COVID-19. Prior admission on 09/23/2020 reviewed. All medication listed at time of admission has been reconciled. Past History Past Medical History: other (See HPI) Past Surgical History: No surgical history, Other (Reviewed) Social history: single. denies: smoking, alcohol abuse, prescription drug abuse Family history: hypertension Medications and Allergies Allergies Allergy/AdvReac Type Severity Reaction Status Date / Time iodine Allergy Unknown Verified 01/08/21 09:42 Home Medications Medication Instructions Recorded Confirmed Last Taken Type Montelukast [Singulair] 10 mg PO QHS #30 tablet 09/25/20 Unknown Rx guaiFENesin ER [Mucinex ER] 600 mg PO BID #20 tablet 09/25/20 Unknown Rx levoFLOXacin [Levaquin TAB] 500 mg PO QDAY #3 tablet 09/25/20 Unknown Rx Albuterol Mdi (or & Nicu Only) 1 puff IH TID PRN #1 inh 01/08/21 Unknown Rx [ProAir HFA Inhaler] Ipratropium [Atrovent] 0.5 mg IH Q8HRT PRN #1 box 01/08/21 Unknown Rx predniSONE [Deltasone] 50 mg PO QDAY #5 tab 01/08/21 Unknown Rx Albuterol Mdi (or & Nicu Only) 2 puff IH QID PRN #1 inhalation 03/01/21 Unknown Rx [ProAir HFA Inhaler] Benzonatate [Tessalon Perles] 100 mg PO Q8HR #20 capsule 03/01/21 Unknown Rx Fluticasone/Salmeterol [Advair 1 puff IH BID #1 disk.w.dev 03/01/21 Unknown Rx Diskus 250-50 mcg] Montelukast [Singulair] 10 mg PO QPM #14 tablet 03/01/21 Unknown Rx predniSONE [Deltasone] 50 mg PO QDAY #5 tab 03/01/21 Unknown Rx Active Meds: Active Medications Acetaminophen (Acetaminophen 325 Mg Tab) 650 mg PO Q4H PRN PRN Reason: Pain MILD(1-3)/Fever >100.5/LOWE Albuterol (Albuterol 2.5 Mg/3 Ml Nebu) 2.5 mg IH Q4HRT PRN PRN Reason: Shortness Of Breath Guaifenesin (Guaifenesin Er 600 Mg Tab) 600 mg PO BID KRISTINA Hydromorphone HCl (Hydromorphone 1 Mg/1 Ml Inj) 0.5 mg IV Q23H PRN PRN Reason: Pain , Severe (7-10) Methylprednisolone Sodium Succinate (Methylprednisolone Sod Succinate 40 Mg/1 Ml Inj) 40 mg IV Q8HR KRISTINA Montelukast Sodium (Montelukast 10 Mg Tab) 10 mg PO QHS KRISTINA Ondansetron HCl (Ondansetron 4 Mg/2 Ml Inj) 4 mg IV Q8H PRN PRN Reason: Nausea And Vomiting Oxycodone/Acetaminophen (Oxycodone /Acetaminophen 5-325mg Tab) 1 tab PO Q16H PRN PRN Reason: Pain, Moderate (4-6) Sodium Chloride (Sodium Chloride 0.9% 10 Ml Flush Syringe) 10 ml IV BID KRISTINA Sodium Chloride (Sodium Chloride 0.9% 10 Ml Flush Syringe) 10 ml IV PRN PRN PRN Reason: LINE FLUSH Review of Systems Constitutional: no weight loss, no weight gain, no fever, no sweats Ears, nose, mouth and throat: no ear pain, no ear discharge, no decreased hearing, no nose pain, no nasal congestion Breasts: no change in shape, no swelling, no mass Cardiovascular: no chest pain, no rapid/irregular heart beat, no edema, no syncope Respiratory: shortness of breath, congestion, wheezing, no cough, no excessive sputum, no hemoptysis Gastrointestinal: no abdominal pain, no nausea, no vomiting, no diarrhea, no con stipation Genitourinary Female: no pelvic pain, no flank pain, no dysuria, no urinary frequency, no urgency Rectal: no pain, no incontinence, no bleeding Musculoskeletal: no neck stiffness, no neck pain, no shooting arm pain, no arm numbness/tingling, no low back pain Integumentary: no rash, no pruritis, no sores, no jaundice, no boils Neurological: no head injury, no transient paralysis, no weakness, no parathesias, no numbness Psychiatric: no anxiety, no change in sleep habits, no sleep disturbances, no hypersomnia, no hallucinations Endocrine: no cold intolerance, no polyphagia, no excessive thirst Hematologic/Lymphatic: no easy bruising, no easy bleeding Allergic/Immunologic: no urticaria, no allergic rhinitis, no wheezing Exam - Constitutional Vitals: Temp Pulse Resp BP Pulse Ox 98.4 F 105 H 22 132/75 100 03/01/21 10:43 03/01/21 13:45 03/01/21 13:45 03/01/21 13:31 03/01/21 13:45 General appearance: Present: mild distress - EENT Eyes: Present: PERRL ENT: hearing intact, clear oral mucosa - Neck Neck: Present: supple, normal ROM - Respiratory Respiratory effort: normal, labored, accessory muscle use, stridor Respiratory: bilateral: diminished, wheezing - Cardiovascular Heart Sounds: Present: S1 & S2. Absent: rub, click - Extremities Extremities: pulses symmetrical, No edema Peripheral Pulses: within normal limits - Abdominal General gastrointestinal: Present: soft, non-tender, non-distended, normal bowel sounds Female genitourinary: Present: normal - Integumentary Integumentary: Present: clear, warm, dry - Musculoskeletal Musculoskeletal: gait normal, strength equal bilaterally - Psychiatric Psychiatric: appropriate mood/affect, intact judgment & insight - Neurologic Neurologic: CNII-XII intact, moves all extremities Results - Labs CBC & Chem 7: 03/01/21 10:50 03/01/21 10:50 Labs: Abnormal lab results 03/01/21 03/01/21 03/01/21 Range/Units 10:50 10:50 12:00 Seg Neuts % (Manual) 93.0 H (40.0-70.0) % Lymphocytes % (Manual) 7.0 L (13.4-35.0) % Lymphocytes # (Manual) 0.5 L (1.2-5.4) K/mm3 ABG HCO3 18.0 L (20.0-26.0) mmol/L ABG Base Excess -5.8 L (-2.0-3.0) mmol/L Chloride 108.1 H (98-107) mmol/L Carbon Dioxide 17 L (22-30) mmol/L Glucose 149 H (65-100) mg/dL Assessment and Plan - Patient Problems (1) Acute respiratory failure with hypoxia Current Visit: No Status: Acute Plan to address problem: Chest x-ray, supplemental oxygen, pulse oximetry, nebulizer therapy, pulmonary toilet. (2) Status asthmaticus Current Visit: Yes Status: Acute Qualifiers: Asthma severity: moderate Asthma persistence: persistent Qualified Code(s): J45.42 - Moderate persistent asthma with status asthmaticus Plan to address problem: Chest x-ray, supplemental oxygen, pulse oximetry, nebulizer therapy, IV steroid therapy, supportive care, continue prehospital therapy, outpatient pulmonary follow-up. (3) History of pulmonary embolism Current Visit: No Status: Acute Plan to address problem: Supportive care (4) DVT prophylaxis Current Visit: Yes Status: Acute Plan to address problem: SCD to bilateral lower extremities while in bed, patient is ambulatory
[2021-03-01] MEDS: methylPREDNISolone Sod Succinate 40 MG/1 ML INJ IV SCH ×2 (17:25→22:14)
[2021-03-01] MEDS: guaiFENesin ER 600 MG TAB PO SCH (22:14)
[2021-03-01] MEDS: MONTELUKAST 10 MG TAB PO SCH (22:14)
[2021-03-01] MEDS: ALBUTEROL 2.5 MG/3 ML NEBU IH PRN (23:40)
[2021-03-02] MEDS: methylPREDNISolone Sod Succinate 40 MG/1 ML INJ IV SCH (05:15)
[2021-03-02 08:55] LABS: Basophils % (Auto) 0.2 % (0.0-1.8); Hematocrit 38.8 % (30.3-42.9); Hemoglobin 12.8 gm/dl (10.1-14.3); Lymphocytes # (Auto) 0.7 K/mm3 (1.2-5.4); Lymphocytes % (Auto) 5.1 % (13.4-35.0); Mean Corpuscular HGB Conc 33 % (30-34); Mean Corpuscular Volume 93 fl (79-97); Monocytes # (Auto) 0.7 K/mm3 (0.0-0.8); Monocytes % (Auto) 5.1 % (0.0-7.3); Platelet Count 275 K/mm3 (140-440); Red Blood Count 4.18 M/mm3 (3.65-5.03); Red Cell Distribution Width 14.2 % (13.2-15.2)
[2021-03-02 09:15] LABS: BUN/Creatinine Ratio 15; Blood Urea Nitrogen 9 mg/dL (7-17); Hemolysis Index 6
--- NOTE | 2021-03-02 09:25 | Event Note ---
Date: 03/02/[address] Velarde and Dr. Henry, please consult one of them. Thanks. Will cancel my consult.
[2021-03-02] MEDS ORDERED: LORATADINE/PSEUDOEPHEDRINE 10-240 MG TAB 24HR PO SCH (10:00)
[2021-03-02] MEDS: guaiFENesin ER 600 MG TAB PO SCH ×2 (10:30→21:31)
[2021-03-02] MEDS: ALBUTEROL 2.5 MG/3 ML NEBU IH PRN ×2 (10:56→20:14)
--- NOTE | 2021-03-02 11:53 | Progress Note ---
Assessment and Plan Assessment and plan: #Status asthmaticus #Moderate persistent asthma -Chest x-ray within normal limits -Continue pulse oximetry, albuterol nebulizer treatment every 4 hours, montelukast daily -Transitioned from IV methylprednisone 40 mg every 8 hours to p.o. prednisone 40 mg daily starting tomorrow. Daily steroid already administered today. -Consulted pulmonology; pending recommendations. Patient requesting outpatient pulmonary follow-up. -Continue to monitor #Acute hypoxic respiratory failure-resolved -Patient no longer requiring nasal cannula -continue to monitor #Leukocytosis -WBC 13 -Likely secondary to IV steroid administration. Patient is currently normotensive and afebrile. Continue to monitor. #History of pulmonary embolism -Associated with Covid pneumonia developed in May 2020 -Status post anticoagulation therapy. #DVT prophylaxis -Continue with SCDs #Advanced care planning -Disease education conducted, care plan discussed, diagnoses discussed, prognosis discussed, and patient acknowledges understanding with care plan -Time: +15 minutes Disposition Plan: Continue medical management Total Time Spent with Patient (Minutes): 40 History Interval history: No acute events overnight. Hospitalist Physical - Constitutional Vitals: Temp Pulse Resp BP Pulse Ox 98.0 F 82 18 103/47 97 03/02/21 04:03 03/02/21 10:56 03/02/21 10:56 03/02/21 04:03 03/02/21 06:30 General appearance: Present: no acute distress, well-nourished - EENT Eyes: Present: PERRL, EOM intact ENT: hearing intact, clear oral mucosa, dentition normal - Neck Neck: Present: supple, normal ROM - Respiratory Respiratory effort: normal Respiratory: bilateral: wheezing (Expiratory and inspiratory) - Cardiovascular Rhythm: regular Heart Sounds: Present: S1 & S2 - Extremities Extremities: no ischemia, pulses intact, pulses symmetrical, No edema, normal temperature, normal color Peripheral Pulses: within normal limits - Abdominal General gastrointestinal: soft, non-tender, non-distended, normal bowel sounds - Integumentary Integumentary: Present: clear, warm, dry - Psychiatric Psychiatric: appropriate mood/affect, intact judgment & insight, memory intact, cooperative - Neurologic Neurologic: CNII-XII intact, moves all extremities - Allied Health Allied health notes reviewed: nursing Results - Labs CBC & Chem 7: 03/02/21 08:19 03/02/21 08:19 Labs: Laboratory Last Values WBC 13.0 K/mm3 (4.5-11.0) H 03/02/21 08:19 RBC 4.18 M/mm3 (3.65-5.03) 03/02/21 08:19 Hgb 12.8 gm/dl (10.1-14.3) 03/02/21 08:19 Hct 38.8 % (30.3-42.9) 03/02/21 08:19 MCV 93 fl (79-97) 03/02/21 08:19 MCH 31 pg (28-32) 03/02/21 08:19 MCHC 33 % (30-34) 03/02/21 08:19 RDW 14.2 % (13.2-15.2) 03/02/21 08:19 Plt Count 275 K/mm3 (140-440) 03/02/21 08:19 Lymph % (Auto) 5.1 % (13.4-35.0) L 03/02/21 08:19 [place] % (Auto) 5.1 % (0.0-7.3) 03/02/21 08:19 Eos % (Auto) 0.0 % (0.0-4.3) 03/02/21 08:19 Baso % (Auto) 0.2 % (0.0-1.8) 03/02/21 08:19 Lymph # (Auto) 0.7 K/mm3 (1.2-5.4) L 03/02/21 08:19 [place] # (Auto) 0.7 K/mm3 (0.0-0.8) 03/02/21 08:19 Eos # (Auto) 0.0 K/mm3 (0.0-0.4) 03/02/21 08:19 Baso # (Auto) 0.0 K/mm3 (0.0-0.1) 03/02/21 08:19 Add Manual Diff Complete 03/01/21 10:50 Total Counted 100 03/01/21 10:50 Seg Neutrophils % 89.6 % (40.0-70.0) H 03/02/21 08:19 Seg Neuts % (Manual) 93.0 % (40.0-70.0) H 03/01/21 10:50 Lymphocytes % (Manual) 7.0 % (13.4-35.0) L 03/01/21 10:50 Nucleated RBC % Not Reportable 03/01/21 10:50 Seg Neutrophils # 11.7 K/mm3 (1.8-7.7) H 03/02/21 08:19 Seg Neutrophils # Man 6.9 K/mm3 (1.8-7.7) 03/01/21 10:50 Band Neutrophils # 0.0 K/mm3 03/01/21 10:50 Lymphocytes # (Manual) 0.5 K/mm3 (1.2-5.4) L 03/01/21 10:50 Abs React Lymphs (Man) 0.0 K/mm3 03/01/21 10:50 Monocytes # (Manual) 0.0 K/mm3 (0.0-0.8) 03/01/21 10:50 Eosinophils # (Manual) 0.0 K/mm3 (0.0-0.4) 03/01/21 10:50 Basophils # (Manual) 0.0 K/mm3 (0.0-0.1) 03/01/21 10:50 Metamyelocytes # 0.0 K/mm3 03/01/21 10:50 Myelocytes # 0.0 K/mm3 03/01/21 10:50 Promyelocytes # 0.0 K/mm3 03/01/21 10:50 Blast Cells # 0.0 K/mm3 03/01/21 10:50 WBC Morphology Not Reportable 03/01/21 10:50 Hypersegmented Neuts Not Reportable 03/01/21 10:50 Hyposegmented Neuts Not Reportable 03/01/21 10:50 Hypogranular Neuts Not Reportable 03/01/21 10:50 Smudge Cells Not Reportable 03/01/21 10:50 Toxic Granulation Not Reportable 03/01/21 10:50 Toxic Vacuolation Not Reportable 03/01/21 10:50 Dohle Bodies Not Reportable 03/01/21 10:50 Pelger-Huet Anomaly Not Reportable 03/01/21 10:50 Sai Rods Not Reportable 03/01/21 10:50 Platelet Estimate Consistent w auto 03/01/21 10:50 Clumped Platelets Not Reportable 03/01/21 10:50 Plt Clumps, EDTA Not Reportable 03/01/21 10:50 Large Platelets Not Reportable 03/01/21 10:50 Giant Platelets Not Reportable 03/01/21 10:50 Platelet Satelliting Not Reportable 03/01/21 10:50 Plt Morphology Comment Not Reportable 03/01/21 10:50 RBC Morphology Normal 03/01/21 10:50 Dimorphic RBCs Not Reportable 03/01/21 10:50 Polychromasia Not Reportable 03/01/21 10:50 Hypochromasia Not Reportable 03/01/21 10:50 Poikilocytosis Not Reportable 03/01/21 10:50 Anisocytosis Not Reportable 03/01/21 10:50 Microcytosis Not Reportable 03/01/21 10:50 Macrocytosis Not Reportable 03/01/21 10:50 Spherocytes Not Reportable 03/01/21 10:50 Pappenheimer Bodies Not Reportable 03/01/21 10:50 Sickle Cells Not Reportable 03/01/21 10:50 Target Cells Not Reportable 03/01/21 10:50 Tear Drop Cells Not Reportable 03/01/21 10:50 Ovalocytes Not Reportable 03/01/21 10:50 Helmet Cells Not Reportable 03/01/21 10:50 Kauffman-Elliston Bodies Not Reportable 03/01/21 10:50 Smoot Rings Not Reportable 03/01/21 10:50 [place] Cells Not Reportable 03/01/21 10:50 Bite Cells Not Reportable 03/01/21 10:50 Crenated Cell Not Reportable 03/01/21 10:50 Elliptocytes Not Reportable 03/01/21 10:50 Acanthocytes (Spur) Not Reportable 03/01/21 10:50 Rouleaux Not Reportable 03/01/21 10:50 Hemoglobin C Crystals Not Reportable 03/01/21 10:50 Schistocytes Not Reportable 03/01/21 10:50 Malaria parasites Not Reportable 03/01/21 10:50 Deng Bodies Not Reportable 03/01/21 10:50 Hem Pathologist Commnt No 03/01/21 10:50 PT 14.5 Sec. (12.2-14.9) 03/01/21 10:50 INR 1.02 (0.87-1.13) 03/01/21 10:50 D-Dimer 166.31 ng/mlDDU (0-234) 03/01/21 10:50 ABG pH 7.391 pH Units (7.350-7.450) 03/01/21 12:00 ABG pCO2 30.4 mm Hg 03/01/21 12:00 ABG pO2 85.9 mm Hg (80.0-90.0) 03/01/21 12:00 ABG HCO3 18.0 mmol/L (20.0-26.0) L 03/01/21 12:00 ABG O2 Saturation 96.8 % (95.0-99.0) 03/01/21 12:00 ABG O2 Content 17.2 (0.0-44) 03/01/21 12:00 ABG Base Excess -5.8 mmol/L (-2.0-3.0) L 03/01/21 12:00 ABG Hemoglobin 12.8 gm/dl (12.0-16.0) 03/01/21 12:00 ABG Carboxyhemoglobin 1.2 % (0.0-5.0) 03/01/21 12:00 ABG Methemoglobin 0.5 % (0.0-1.5) 03/01/21 12:00 Oxyhemoglobin 95.1 % (95.0-99.0) 03/01/21 12:00 FiO2 21 % 03/01/21 12:00 Sodium 137 mmol/L (137-145) 03/02/21 08:19 Potassium 4.3 mmol/L (3.6-5.0) 03/02/21 08:19 Chloride 106.4 mmol/L (98-107) 03/02/21 08:19 Carbon Dioxide 19 mmol/L (22-30) L 03/02/21 08:19 Anion Gap 16 mmol/L 03/02/21 08:19 BUN 9 mg/dL (7-17) 03/02/21 08:19 Creatinine 0.6 mg/dL (0.6-1.2) 03/02/21 08:19 Estimated GFR > 60 ml/min 03/02/21 08:19 BUN/Creatinine Ratio 15 % 03/02/21 08:19 Glucose 138 mg/dL (65-100) H 03/02/21 08:19 Calcium 9.0 mg/dL (8.4-10.2) 03/02/21 08:19 Total Bilirubin 0.80 mg/dL (0.1-1.2) 03/01/21 10:50 AST 18 units/L (5-40) 03/01/21 10:50 ALT 11 units/L (7-56) 03/01/21 10:50 Alkaline Phosphatase 83 units/L (35-129) 03/01/21 10:50 Total Protein 6.9 g/dL (6.3-8.2) 03/01/21 10:50 Albumin 4.1 g/dL (3.9-5) 03/01/21 10:50 Albumin/Globulin Ratio 1.5 % 03/01/21 10:50 HCG, Quant < 2 mIU/mL (0-4) 03/01/21 11:12 [place]/IV: Voiding Method Toilet Active Medications - Current Medications Current Medications: Generic Name Dose Route Start Last Admin Trade Name Freq PRN Reason Stop Dose Admin Acetaminophen 650 mg 03/01/21 15:29 Acetaminophen 325 Mg Tab PO Q4H PRN Pain MILD(1-3)/Fever >100.5/LOWE Albuterol 2.5 mg 03/01/21 15:29 03/02/21 10:56 Albuterol 2.5 Mg/3 Ml Nebu IH 2.5 mg Q4HRT PRN Administration Shortness Of Breath Guaifenesin 600 mg 03/01/21 22:00 03/02/21 10:30 Guaifenesin Er 600 Mg Tab PO 600 mg BID KRISTINA Administration Hydromorphone HCl 0.5 mg 03/01/21 15:29 Hydromorphone 1 Mg/1 Ml Inj IV Q23H PRN Pain , Severe (7-10) Loratadine/Pseudoephedrine Sulfate 1 each 03/02/21 10:00 03/02/21 10:30 Loratadine/Pseudoephedrine 10-240 Mg Tab 24hr PO 1 each Q24HR KRISTINA Administration Montelukast Sodium 10 mg 03/01/21 22:00 03/01/21 22:14 Montelukast 10 Mg Tab PO 10 mg QHS KRISTINA Administration Ondansetron HCl 4 mg 03/01/21 15:29 Ondansetron 4 Mg/2 Ml Inj IV Q8H PRN Nausea And Vomiting Oxycodone/Acetaminophen 1 tab 03/01/21 15:29 Oxycodone /Acetaminophen 5-325mg Tab PO Q16H PRN Pain, Moderate (4-6) Prednisone 40 mg 03/03/21 10:00 Prednisone 20 Mg Tab PO QDAY KRISTINA Sodium Chloride 10 ml 03/01/21 22:00 03/02/21 10:30 Sodium Chloride 0.9% 10 Ml Flush Syringe IV 10 ml BID KRISTINA Administration Sodium Chloride 10 ml 03/01/21 15:29 Sodium Chloride 0.9% 10 Ml Flush Syringe IV PRN PRN LINE FLUSH
[2021-03-02] MEDS: MONTELUKAST 10 MG TAB PO SCH (21:31)
[2021-03-03 05:10] VITALS: BP 108/77
[2021-03-03 06:12] LABS: Basophils # (Auto) 0.1 K/mm3 (0.0-0.1); Basophils % (Auto) 0.6 % (0.0-1.8); Eosinophils % (Auto) 0.3 % (0.0-4.3); Hematocrit 38.8 % (30.3-42.9); Lymphocytes # (Auto) 3.3 K/mm3 (1.2-5.4); Lymphocytes % (Auto) 27.1 % (13.4-35.0); Mean Corpuscular HGB Conc 33 % (30-34); Mean Corpuscular Volume 93 fl (79-97); Monocytes # (Auto) 0.9 K/mm3 (0.0-0.8); Monocytes % (Auto) 7.6 % (0.0-7.3); Platelet Count 269 K/mm3 (140-440); Red Blood Count 4.18 M/mm3 (3.65-5.03); Red Cell Distribution Width 14.1 % (13.2-15.2)
[2021-03-03 06:39] LABS: Blood Urea Nitrogen 17 mg/dL (7-17); Hemolysis Index 10
[2021-03-03 06:40] LABS: BUN/Creatinine Ratio 24
[2021-03-03] MEDS: guaiFENesin ER 600 MG TAB PO SCH (09:38)
[2021-03-03] MEDS: ALBUTEROL 2.5 MG/3 ML NEBU IH PRN (09:40)
--- NOTE | 2021-03-03 09:42 | Consultation ---
History of Present Illness Consult date: 03/03/21 Reason for consult: dyspnea, asthma History of present illness: 20 YO Female with Moderate Persistent Asthma, PE S/P coronavirus infection not currently taking therapeutic anticoagulation, Seasonal Allergies presents to ED for evaluation. Patient reports "I cannot breathe". Patient is in moderate respiratory distress . Patient states that she cannot breathe and has been experiencing the aforementioned symptoms over the past 1 day. Patient was seen and evaluated by her sales merchandiser and treated as an outpatient with oral steroid therapy and increased bronchodilator therapy without relief. Patient is using accessory muscles to breathe, patient is sitting up in bed, tripoding with audible wheezing, unable to speak in complete sentences. Patient transported to [facility] via private vehicle for further care and evaluation of the aforementioned symptoms. The patient was seen and evaluated in the emergency department. All lab and imaging studies reviewed. Patient was found to have a pulse oximetry of 87% with exertion on room air which is consistent with acute hypoxemic respiratory failure. Patient treated with nebulizer and steroid therapy without significant relief of symptoms. No reports of fever, chills, chest pain, palpitation, skin rash, recent contact, or known exposure to COVID-19. Patient is vaccinated against COVID-19. Patient admitted to the hospital. Patient this morning alert, awake. No complaint of chest pain, wheezing, shortness of breath and cough. Patient has no history of smoking, alcohol or drug abuse. Patient is college student. Not . Has no children. Patient said she has COVID 19 infection last may and also diagnosed with bilateral PE at that time. Patient received and finished course of anticoagulation. Patient is on room air. O2 saturation 98%. Patient afebrile. Has mild leuko cytosis. Blood pressure 108/77. Pulse 76. Chest xray done 03/01/21 reported No significant pulmonary or pleural abnormality. No pneumothorax. Patient presently on albuterol inhaler and PO Prednisone. Past History Past Medical History: pulmonary embolism, other (Asthma. History of COVID 19 infection and also diagnosed bilateral pulmonary emboli.) Past Surgical History: No surgical history, Other (Reviewed) Social history: single. denies: smoking, alcohol abuse, prescription drug abuse Family history: hypertension Medications and Allergies Allergies Allergy/AdvReac Type Severity Reaction Status Date / Time iodine Allergy Unknown Verified 01/08/21 09:42 Home Medications Medication Instructions Recorded Confirmed Last Taken Type Montelukast [Singulair] 10 mg PO QPM #14 tablet 03/01/21 Unknown Rx predniSONE [Deltasone] 50 mg PO QDAY #5 tab 03/01/21 Unknown Rx ALBUTEROL NEB's [Proventil 0.083% 2.5 mg IH Q4H PRN 30 Days #180 ml 03/03/21 Unknown Rx NEBS] Albuterol Mdi (or & Nicu Only) 2 puff IH QID PRN 30 Days #3 each 03/03/21 Unknown Rx [ProAir HFA Inhaler] Fluticasone/Salmeterol [Advair 1 puff IH BID 30 Days #2 disk.w.dev 03/03/21 Unknown Rx Diskus 500-50 mcg] Loratadine [Claritin] 10 mg PO QDAY 03/03/21 03/03/21 Unknown History Mepolizumab [Nucala] 100 mg SQ QMONTH 03/03/21 03/03/21 02/24/21 History Tiotropium [Spiriva] 18 mcg IH QDAY 30 Days #1 box 03/03/21 Unknown Rx predniSONE [Deltasone] 40 mg PO QDAY 3 Days #6 tablet 03/03/21 Unknown Rx Active Meds: Active Medications Acetaminophen (Acetaminophen 325 Mg Tab) 650 mg PO Q4H PRN PRN Reason: Pain MILD(1-3)/Fever >100.5/LOWE Albuterol (Albuterol 2.5 Mg/3 Ml Nebu) 2.5 mg IH Q4HRT PRN PRN Reason: Shortness Of Breath Last Admin: 03/02/21 20:14 Dose: 2.5 mg Documented by: Guaifenesin (Guaifenesin Er 600 Mg Tab) 600 mg PO BID [facility] Last Admin: 03/03/21 09:38 Dose: 600 mg Documented by: Hydromorphone HCl (Hydromorphone 1 Mg/1 Ml Inj) 0.5 mg IV Q23H PRN PRN Reason: Pain , Severe (7-10) Loratadine/Pseudoephedrine Sulfate (Loratadine/Pseudoephedrine 10-240 Mg Tab 24hr) 1 each PO Q24HR [facility] Last Admin: 03/02/21 10:30 Dose: 1 each Documented by: Montelukast Sodium (Montelukast 10 Mg Tab) 10 mg PO QHS [facility] Last Admin: 03/02/21 21:31 Dose: 10 mg Documented by: Ondansetron HCl (Ondansetron 4 Mg/2 Ml Inj) 4 mg IV Q8H PRN PRN Reason: Nausea And Vomiting Oxycodone/Acetaminophen (Oxycodone /Acetaminophen 5-325mg Tab) 1 tab PO Q16H PRN PRN Reason: Pain, Moderate (4-6) Prednisone (Prednisone 20 Mg Tab) 40 mg PO QDAY [facility] Last Admin: 03/03/21 09:38 Dose: 40 mg Documented by: Sodium Chloride (Sodium Chloride 0.9% 10 Ml Flush Syringe) 10 ml IV BID [facility] Last Admin: 03/03/21 09:38 Dose: 10 ml Documented by: Sodium Chloride (Sodium Chloride 0.9% 10 Ml Flush Syringe) 10 ml IV PRN PRN PRN Reason: LINE FLUSH Review of Systems All systems: negative Physical Examination Vital signs: Vital Signs Temp Pulse Resp BP Pulse Ox 98.9 F 92 H 30 H 139/74 96 03/01/21 03:13 03/01/21 03:13 03/01/21 03:13 03/01/21 03:13 03/01/21 03:13 General appearance: no acute distress, alert Eyes: non-icteric ENT: oropharynx moist Neck: supple, no JVD Ascultation: Bilateral: clear Cardiovascular: regular rate and rhythm Gastrointestinal: normoactive bowel sounds, soft, non-tender Integumentary: normal Extremities: no cyanosis, no edema Musculoskeletal: no deformities Gait: normal posture normal mental status, non-focal exam, pupils equal and round, CN II-XII normal mood appropriate, affect normal Results - Laboratory Findings CBC and BMP: 03/03/21 04:00 03/03/21 04:00 ABG ABG pH 7.391 pH Units (7.350-7.450) 03/01/21 12:00 ABG pCO2 30.4 mm Hg 03/01/21 12:00 ABG pO2 85.9 mm Hg (80.0-90.0) 03/01/21 12:00 ABG O2 Saturation 96.8 % (95.0-99.0) 03/01/21 12:00 PT/INR, D-dimer PT 14.5 Sec. (12.2-14.9) 03/01/21 10:50 INR 1.02 (0.87-1.13) 03/01/21 10:50 D-Dimer 166.31 ng/mlDDU (0-234) 03/01/21 10:50 Abnormal lab findings: Abnormal Labs 03/01/21 03/01/21 03/01/21 10:50 10:50 12:00 WBC Lymph % (Auto) [place] % (Auto) Lymph # (Auto) [place] # (Auto) Seg Neutrophils % Seg Neuts % (Manual) 93.0 H Lymphocytes % (Manual) 7.0 L Seg Neutrophils # Lymphocytes # (Manual) 0.5 L ABG HCO3 18.0 L ABG Base Excess -5.8 L Chloride 108.1 H Carbon Dioxide 17 L Glucose 149 H 03/02/21 03/02/21 03/03/21 08:19 08:19 04:00 WBC 13.0 H 12.3 H Lymph % (Auto) 5.1 L [place] % (Auto) 7.6 H Lymph # (Auto) 0.7 L [place] # (Auto) 0.9 H Seg Neutrophils % 89.6 H Seg Neuts % (Manual) Lymphocytes % (Manual) Seg Neutrophils # 11.7 H 7.9 H Lymphocytes # (Manual) ABG HCO3 ABG Base Excess Chloride Carbon Dioxide 19 L Glucose 138 H 03/03/21 04:00 WBC Lymph % (Auto) [place] % (Auto) Lymph # (Auto) [place] # (Auto) Seg Neutrophils % Seg Neuts % (Manual) Lymphocytes % (Manual) Seg Neutrophils # Lymphocytes # (Manual) ABG HCO3 ABG Base Excess Chloride Carbon Dioxide 18 L Glucose - Diagnostic Findings Chest x-ray: report reviewed, image reviewed Additional studies: CHEST 2 VIEWS 03/01/21 INDICATION / CLINICAL INFORMATION: sob and cougjh. COMPARISON: 09/23/2020 FINDINGS: SUPPORT DEVICES: None. HEART / MEDIASTINUM: No significant abnormality. LUNGS / PLEURA: No significant pulmonary or pleural abnormality. No pneumothorax. ADDITIONAL FINDINGS: No significant additional findings. IMPRESSION: 1. No acute findings. Assessment and Plan 20 YO Female with Moderate Persistent Asthma, PE S/P coronavirus infection not currently taking therapeutic anticoagulation, Seasonal Allergies presents to ED for evaluation. Patient reports "I cannot breathe". Patient is in moderate respiratory distress . Patient states that she cannot breathe and has been experiencing the aforementioned symptoms over the past 1 day. Patient was seen and evaluated by her sales merchandiser and treated as an outpatient with oral steroid therapy and increased bronchodilator therapy without relief. Patient is using accessory muscles to breathe, patient is sitting up in bed, tripoding with audible wheezing, unable to speak in complete sentences. Patient transported to [facility] via private vehicle for further care and evaluation of the aforementioned symptoms. The patient was seen and evaluated in the emergency department. All lab and imaging studies reviewed. Patient was found to have a pulse oximetry of 87% with exertion on room air which is consistent with acute hypoxemic respiratory failure. Patient treated with nebulizer and steroid therapy without significant relief of symptoms. No reports of fever, chills, chest pain, palpitation, skin rash, recent contact, or known exposure to COVID- 19. Patient is vaccinated against COVID-19. Patient admitted to the hospital. Patient this morning alert, awake. No complaint of chest pain, wheezing, shortness of breath and cough. Patient has no history of smoking, alcohol or drug abuse. Patient is college student. Not . Has no children. Patient said she has COVID 19 infection last may and also diagnosed with bilateral PE at that time. Patient received and finished course of anticoagulation. Patient is on room air. O2 saturation 98%. Patient afebrile. Has mild le ukocytosis. Blood pressure 108/77. Pulse 76. Chest xray done 03/01/21 reported No significant pulmonary or pleural abnormality. No pneumothorax. Patient presently on albuterol inhaler and PO Prednisone. - Patient Problems (1) Acute respiratory failure with hypoxia Status: Acute Plan to address problem: Improved. Patient is on room air. O2 saturation 98%. (2) Status asthmaticus Status: Acute Qualifiers: Asthma severity: moderate Asthma persistence: persistent Qualified Code(s): J45.42 - Moderate persistent asthma with status asthmaticus Plan to address problem: Patient treated with I/V solumedrol and epinephrine. Patient wheezing and shortness of breath improved. Patient presently on PO Prednisone and Albuterol inhaler. (3) History of pulmonary embolism Status: Acute Plan to address problem: Patient finished course of anticoagulation. Patients O2 saturation, shortness of breath and wheezing significantly improved with asthma treatment.
[2021-03-03] MEDS ORDERED: predniSONE 20 MG TAB PO SCH (10:00)
--- NOTE | 2021-03-03 12:04 | Discharge Summary ---
Providers - Providers Date of Admission: 03/01/21 15:29 Date of discharge: 03/03/21 Attending physician: PRASANTH VANESSA MD 03/02/21 10:54 Consult to Physician [CONS] Routine Comment: Consulting Provider: LUZ MARIA ROBERSON Physician Instructions: Reason For Exam: Asthma exacerbation management. Primary care physician: IOS DEVELOPER Hospitalization Reason for admission: Asthma exacerbation Condition: Stable Hospital course: 20-year-old female with history of moderate persistent asthma and previous pulmonary embolism secondary to COVID-19 infection status post 6-month anticoagulation treatment who presented with shortness of breath. Was found to be in moderate respiratory distress. Pulse oximetry showed 87% with exertion. She was admitted for asthma exacerbation. She was started on nebulizing treatment along with steroids. Shortness of breath improved. Patient was disc harged home with refills of missing home medications. Disposition: 01 HOME / SELF CARE / HOMELESS Final Discharge Diagnosis (Prints w/discharge instructions): Acute asthma exacerbation. Acute hypoxic respiratory failure Time spent for discharge: 20 minutes Core Measure Documentation - Palliative Care Palliative Care/ Comfort Measures: Not Applicable - Core Measures Any of the following diagnoses?: none Exam - Physical Exam Narrative exam: GENERAL: Well-developed well-nourished. Sitting on the side of the bed in no acute distress. HEENT: Normocephalic. Atraumatic. CHEST/LUNGS: Mild expiratory wheezing bilaterally. HEART/CARDIOVASCULAR: RRR. No murmur, rubs or gallops appreciated. ABDOMEN: +BS. NT/ND. PSYCH: Cooperative. - Constitutional Vitals: Temp Pulse Resp BP Pulse Ox 98.0 F 76 18 108/77 98 03/03/21 05:08 03/03/21 09:40 03/03/21 09:40 03/03/21 05:08 03/03/21 09:42 Plan Activity: advance as tolerated Diet: regular Care Plan Goals: Resume home medications. Follow-up with Pulmonary within the next 2 weeks. Assessment: Patient admitted with acute asthma exacerbation. Improved with steroids and nebulizer treatments. Seen by designer and patternmaker. And was discharged with refills of missing home meds. Follow up with: [facility] [Provider Group] - 3-5 Days PRIMARY CAREMD [Primary Care Provider] - 3-5 Days AVIS GARZA MD [Staff Physician] - 14 Days Forms: Work/School Release Form Prescriptions: Fluticasone/Salmeterol [Advair Diskus 500-50 mcg] 1 puff IH BID 30 Days #2 disk.w.dev predniSONE [Deltasone] 40 mg PO QDAY 3 Days #6 tablet predniSONE [Deltasone] 50 mg PO QDAY #5 tab Albuterol Mdi (or & Nicu Only) [ProAir HFA Inhaler] 2 puff IH QID PRN 30 Days #3 each PRN Reason: Shortness Of Breath ALBUTEROL NEB's [Proventil 0.083% NEBS] 2.5 mg IH Q4H PRN 30 Days #180 ml PRN Reason: Shortness Of Breath Montelukast [Singulair] 10 mg PO QPM #14 tablet Tiotropium [Spiriva] 18 mcg IH QDAY 30 Days #1 box
== END 2021-03-03 13:30 | disposition home or self-care (01) ==
LOC: ED 02:05 → 3A 15:29
PROVIDERS: ADMIT Internal Medicine; ATTEND Student in an Organized Health Care Education/Training Program
DX: J96.01 Acute respiratory failure with hypoxia (principal); J45.902 Unspecified asthma with status asthmaticus; D72.829 Elevated white blood cell count, unspecified; Z86.711 Personal history of pulmonary embolism
CPT/HCPCS: 36415; 71046; 80048; 80053; 82803; 84702; 85025; 85379; 85610; 94640; 96365; 96366; 96375; 96376; 99284; G0378; J0171; J1100; J1200; J2920; J3475; J7030; J7512; 85007; 94644

== ENCOUNTER 2021-05-20 15:10 | Emergency (ER) | payer BC ==
[2021-05-20 15:30] VITALS: BP 140/78
[2021-05-20] MEDS ORDERED: IPRATROPIUM 0.02% NEBU 2.5 ML IH ONE (15:44)
[2021-05-20] MEDS ORDERED: ALBUTEROL 2.5 MG/3 ML NEBU IH ONE (15:44)
[2021-05-20] MEDS ORDERED: dexAMETHasone 4 MG/ML VIAL IM STA (15:44)
[2021-05-20] MEDS ORDERED: MAGNESIUM SULFATE 2 GM/50 ML BAG IV ONE (15:45)
--- NOTE | 2021-05-20 15:45 | Emergency Department Report ---
ED General Adult HPI - General Chief complaint: Adult Asthma Stated complaint: ASTHMA ATTACK Time Seen by Provider: 05/20/21 15:43 Source: patient Mode of arrival: Ambulatory Limitations: No Limitations - History of Present Illness Initial comments: 20-year-old -N[place]ales[place] female patient presents with complaints of shortness of breath x 1.5 weeks. Patient states she has a history of asthma and that her symptoms feel like her normal asthma exacerbation. She reports about a week ago she was seen by her PCP who prescribed a few days of methylpre dnisolone. Patient states her symptoms improved and then began to worsen a few days ago. She denies any leg pain/swelling, hemoptysis, chest pain, loss of taste or smell, fever/chills/sweats, or recent known sick contacts. Patient does report a history of PE secondary to COVID-pneumonia. She reports she is also on oral control and has followed up with a waste water plant operator who states she is okay to take oral contraceptives per patient. No other past medical history per patient. Severity scale (0 -10): 0 - Related Data Home Medications Medication Instructions Recorded Confirmed Last Taken Loratadine [Claritin] 10 mg PO QDAY 03/03/21 03/03/21 Unknown Mepolizumab [Nucala] 100 mg SQ QMONTH 03/03/21 03/03/21 02/24/21 Previous Rx's Medication Instructions Recorded Last Taken Type Montelukast [Singulair] 10 mg PO QPM #14 tablet 03/01/21 Unknown Rx predniSONE [Deltasone] 50 mg PO QDAY #5 tab 03/01/21 Unknown Rx Fluticasone/Salmeterol [Advair 1 puff IH BID 30 Days #2 disk.w.dev 03/03/21 Unknown Rx Diskus 500-50 mcg] Tiotropium [Spiriva] 18 mcg IH QDAY 30 Days #1 box 03/03/21 Unknown Rx predniSONE [Deltasone] 40 mg PO QDAY 3 Days #6 tablet 03/03/21 Unknown Rx ALBUTEROL NEB's [Proventil 0.083% 2.5 mg IH Q4H PRN 30 Days #180 ml 05/20/21 Unknown Rx NEBS] Albuterol Mdi (or & Nicu Only) 2 puff IH QID PRN 30 Days #3 each 05/20/21 Unknown Rx [ProAir HFA Inhaler] Prednisone [predniSONE 10 mg 10 mg PO .TAPER #1 pack 05/20/21 Unknown Rx (6-Day Pack, 21 Tabs)] Allergies Allergy/AdvReac Type Severity Reaction Status Date / Time iodine Allergy Unknown Verified 05/20/21 15:30 ED Review of Systems ROS: Stated complaint: ASTHMA ATTACK Other details as noted in HPI Constitutional: denies: chills, fever, malaise Respiratory: shortness of breath, wheezing Cardiovascular: denies: chest pain Gastrointestinal: denies: abdominal pain Neurological: denies: headache ED Past Medical Hx - Past Medical History Hx Arthritis: No Hx Asthma: Yes - Social History Smoking Status: Never Smoker - Medications Home Medications: Home Medications Medication Instructions Recorded Confirmed Last Taken Type Montelukast [Singulair] 10 mg PO QPM #14 tablet 03/01/21 Unknown Rx predniSONE [Deltasone] 50 mg PO QDAY #5 tab 03/01/21 Unknown Rx Fluticasone/Salmeterol [Advair 1 puff IH BID 30 Days #2 disk.w.dev 03/03/21 Unknown Rx Diskus 500-50 mcg] Loratadine [Claritin] 10 mg PO QDAY 03/03/21 03/03/21 Unknown History Mepolizumab [Nucala] 100 mg SQ QMONTH 03/03/21 03/03/21 02/24/21 History Tiotropium [Spiriva] 18 mcg IH QDAY 30 Days #1 box 03/03/21 Unknown Rx predniSONE [Deltasone] 40 mg PO QDAY 3 Days #6 tablet 03/03/21 Unknown Rx ALBUTEROL NEB's [Proventil 0.083% 2.5 mg IH Q4H PRN 30 Days #180 ml 05/20/21 Unknown Rx NEBS] Albuterol Mdi (or & Nicu Only) 2 puff IH QID PRN 30 Days #3 each 05/20/21 Unknown Rx [ProAir HFA Inhaler] Prednisone [predniSONE 10 mg 10 mg PO .TAPER #1 pack 05/20/21 Unknown Rx (6-Day Pack, 21 Tabs)] ED Physical Exam - General Limitations: No Limitations General appearance: alert, in no apparent distress - Head Head exam: Present: atraumatic, normocephalic - Eye Eye exam: Present: normal appearance - Neck Neck exam: Present: normal inspection - Respiratory Respiratory exam: Present: wheezes (Diffuse), rhonchi (Diffuse). Absent: stridor, chest wall tenderness - Cardiovascular Cardiovascular Exam: Present: normal rhythm, tachycardia, normal heart sounds - Extremities Exam Extremities exam: Absent: calf tenderness (No pain or swelling noted bilaterally) - Neurological Exam Neurological exam: Present: alert, oriented X3 - Psychiatric Psychiatric exam: Present: normal affect, normal mood - Skin Skin exam: Present: warm, dry, intact, normal color. Absent: rash ED Course Vital Signs 05/20/21 15:27 Temperature 98.1 F Pulse Rate 110 H Respiratory 18 Rate Blood Pressure 140/78 [Right] O2 Sat by Pulse 99 Oximetry ED Medical Decision Making - Medical Decision Making 20-year-old -N[place] female patient presents with complaints of shortness of breath x 1.5 weeks. Patient states she has a history of asthma and that her symptoms feel like her normal asthma exacerbation. She reports about a week ago she was seen by her PCP who prescribed a few days of methylprednisolone. Patient states her symptoms improved and then began to worsen a few days ago. She denies any leg pain/swelling, hemoptysis, chest pain, loss of taste or smell, fever/chills/sweats, or recent known sick contacts. Patient does report a history of PE secondary to COVID-pneumonia. She reports she is also on oral control and has followed up with a waste water plant operator who states she is okay to take oral contraceptives per patient. No other past medical history per patient. Patient declined dimer and blood work. Patient given hour-long DuoNeb along with Decadron and mag sulfate. She reports her shortness of breath has resolved and that she is feeling well. Heart rate rechecked and noted to be 94 bpm. Patient declines x-ray. She denies any history of intubation for her asthma. Patient is well-appearing and stable for discharge home. Prednisone Dosepak given for home. Recommend follow-up with PCP within 3 days. Discussed in great detail signs and symptoms that should prompt immediate return to the emergency department with patient who verbalizes understanding. Critical care attestation.: If time is entered above; I have spent that time in minutes in the direct care of this critically ill patient, excluding procedure time. ED Disposition Clinical Impression: Asthma exacerbation Disposition: HOME / SELF CARE / HOMELESS Is pt being admited?: No Condition: Stable Instructions: Asthma, Adult Prescriptions: Prednisone [predniSONE 10 mg (6-Day Pack, 21 Tabs)] 10 mg PO .TAPER #1 pack Albuterol Mdi (or & Nicu Only) [ProAir HFA Inhaler] 2 puff IH QID PRN 30 Days #3 each PRN Reason: Shortness Of Breath ALBUTEROL NEB's [Proventil 0.083% NEBS] 2.5 mg IH Q4H PRN 30 Days #180 ml PRN Reason: Shortness Of Breath Referrals: PRIMARY CARE, [Primary Care Provider] - 3-5 Days Forms: Work/School Release Form(ED)
== END 2021-05-20 18:36 | disposition home or self-care (01) ==
LOC: ED 15:10
DX: J45.901 Unspecified asthma with (acute) exacerbation (principal); Z91.09 Other allergy status, other than to drugs and biological substances; Z79.899 Other long term (current) drug therapy
CPT/HCPCS: 94644; 96365; 96372; 99283; J1100; J3475; 94640